=== PATIENT | female | born 1945 | race Caucasian/White ===

== ENCOUNTER 2017-06-08 14:19 | Inpatient (IN) | payer MEDICARE, MEDICAID ==
[~2017-06-08] VITALS: Ht 165.1 cm; Wt 74.8 kg
[~2017-06-08 14:19] MED LIST: ACET325T53 PO; HYDR-4209 PO; IMMODIUM PO; LEVE500T9 PO; LORA0.5T48 PO; MULT1TAB8 PO; OXYB5TAB29 PO; OXYC-132 PO; TEMA15CA5 PO
[2017-06-08] MEDS ORDERED: DIVA500T2 PO (14:45)
[2017-06-08] MEDS ORDERED: CRAN425C6 PO (14:45)
[2017-06-08] MEDS ORDERED: MIRT15TA PO (14:45)
[2017-06-08] MEDS ORDERED: LEVE750T4 PO (14:45)
[2017-06-08] MEDS ORDERED: RIVA1.5C3 PO (14:45)
[2017-06-08] MEDS ORDERED: ASPI81TA31 PO (14:45)
[2017-06-08] MEDS ORDERED: MELA3TAB52 PO (14:46)
[2017-06-08 14:50] LABS: BASOPHILS % (AUTO) 0.5 % (0.0-2.0); EOSINOPHILS # (AUTO) 0.1 K/uL (0.0-0.7); EOSINOPHILS % (AUTO) 2.5 % (0.0-7.0); HEMATOCRIT 38.2 % (31.2-41.9); HEMOGLOBIN 13.2 g/dL (10.9-14.3); LYMPHOCYTES # (AUTO) 2.1 K/uL (20.0-40.0); LYMPHOCYTES % (AUTO) 38.4 % (20.5-51.5); MEAN CORPUSCULAR HEMOGLOBIN 30.5 uug (24.7-32.8); MEAN CORPUSCULAR HGB CONC 35 g/dL (32.3-35.6); MEAN CORPUSCULAR VOLUME 88.3 fL (75.5-95.3); MONOCYTES # (AUTO) 0.3 K/uL (2.0-10.0); MONOCYTES % (AUTO) 5.5 % (0.0-11.0); NEUTROPHILS # (AUTO) 2.9 K/uL (1.8-8.9); NEUTROPHILS % (AUTO) 53.1 % (38.5-71.5); PLATELET COUNT (AUTO) 351 K/uL (179-408); RED BLOOD CELL COUNT(AUTO) 4.33 MIL/uL (3.63-4.92); WHITE BLOOD COUNT (AUTO) 5.5 K/uL (3.8-11.8)
[2017-06-08 14:57] LABS: CARBON DIOXIDE 24 mmol/L (21-32); CHLORIDE 94 mmol/L (98-107); CREATININE 0.5 mg/dL (0.6-1.3); GLUCOSE 155 mg/dL (74-106); UREA NITROGEN, BLOOD 5 mg/dL (7-18)
[2017-06-08] MEDS ORDERED: HYDROCODONE/APAP 5-325MG TABLET PO ONE (15:00)
[2017-06-08 15:02] LABS: ACETAMINOPHEN 10.6 ug/mL (10-30); ALANINE AMINOTRANSFERASE 21 U/L (14-59); ALKALINE PHOSPHATASE 123 U/L (50-136); ASPARTATE AMINOTRANSFERASE 14 U/L (15-37); BILIRUBIN,DIRECT 0.1 mg/dL (0.0-0.2); BILIRUBIN,TOTAL 0.2 mg/dL (0.2-1.0); TOTAL PROTEIN, SERUM 8.1 g/dL (6.4-8.2)
[2017-06-08 15:05] LABS: ETHANOL < 3 MG/DL (0-0)
[2017-06-08] MEDS ORDERED: GUAIFENESIN/CODEINE 5 ML LIQUID UDC PO ONE (15:06)
[2017-06-08] MEDS ORDERED: HYDROCODONE/APAP 5-325MG TABLET ONE (15:11)
[2017-06-08] MEDS ORDERED: GUAIFENESIN/CODEINE 5 ML LIQUID UDC ONE (15:11)
[2017-06-08 16:53] LABS: *BILIRUBIN,URIN NEGATIVE (NEGATIVE); *BLOOD, URINE 1+ (NEGATIVE); *CLARITY,URINE CLEAR (CLEAR); *COLOR,URINE YELLOW (YELLOW); *KETONES,URINE NEGATIVE (NEGATIVE); *PROTEIN,URINE NEGATIVE (NEGATIVE); *UROBILINOGEN,URINE 0.2 E.U./dl (NORMAL); LEUKOCYTE ESTERASE ,URINE NEGATIVE (NEGATIVE); NITRITE, URINE NEGATIVE (NEGATIVE); PH,URINE 7.5 (5.0-8.0); UGLUCOSE NEGATIVE (NEGATIVE)
[2017-06-08 17:09] LABS: WBC,URINE 0-3 /HPF (0-3)
[2017-06-08 17:15] LABS: *AMPHETAMINE, URINE NEGATIVE (NEGATIVE); *BARBITURATE, URINE NEGATIVE (NEGATIVE); *CANNABINOID, URINE NEGATIVE (NEGATIVE); *COCCAINE, URINE NEGATIVE (NEGATIVE); *OPIATE, URINE NEGATIVE (NEGATIVE); *PHENCYCLIDINE SCREEN,URINE NEGATIVE (NEGATIVE)
[2017-06-08 17:21] VITALS: BP 158/110
[2017-06-08] MEDS ORDERED: MAGNESIUM HYDROXIDE 30 ML LIQUID UDC PO PRN (20:45)
[2017-06-08] MEDS ORDERED: MAG HYDROX/AL HYDROX/SIMETH 30 ML LIQUID UDC PO PRN (20:45)
[2017-06-08] MEDS ORDERED: ACETAMINOPHEN 325 MG TABLET PO PRN (20:45)
[2017-06-08] MEDS ORDERED: TEMAZEPAM 7.5 MG CAPSULE PO PRN (20:45)
[2017-06-08 20:58] VITALS: BP 158/105
[2017-06-08] MEDS: TEMAZEPAM 15 MG CAPSULE PO PRN (22:15)
[2017-06-08] MEDS: GUAIFENESIN/DEXTROMETHORPHAN 5 ML UDC PO PRN (22:16)
[2017-06-08] MEDS: ACETAMINOPHEN 325 MG TABLET PO SCH (22:16)
[2017-06-09] MEDS: ACETAMINOPHEN 325 MG TABLET PO SCH (06:10)
[2017-06-09 07:02] LABS: CARBON DIOXIDE 27 mmol/L (21-32); CHLORIDE 95 mmol/L (98-107); CREATININE 0.5 mg/dL (0.6-1.3); GLUCOSE 82 mg/dL (74-106); MAGNESIUM 1.8 mg/dL (1.8-2.4); PHOSPHOROUS 4.2 mg/dL (2.5-4.9); POTASSIUM 3.7 mmol/L (3.5-5.1); UREA NITROGEN, BLOOD 8 mg/dL (7-18)
[2017-06-09 07:10] LABS: THYROID STIMULATING HORMONE 5.272 mIU/mL (0.358-3.740)
[2017-06-09 07:25] LABS: URIC ACID 3.6 mg/dL (2.6-6.0)
[2017-06-09] MEDS: MULTIVIT, IRON, MIN NO. 8, FA TABLET PO SCH (08:47)
[2017-06-09] MEDS: ASPIRIN 325 MG TABLET PO SCH (08:47)
[2017-06-09] MEDS: LEVETIRACETAM 250 MG TABLET PO SCH ×2 (08:47→20:10)
[2017-06-09] MEDS: GUAIFENESIN/DEXTROMETHORPHAN 5 ML UDC PO PRN (08:55)
[2017-06-09] MEDS ORDERED: Medication Not On Formulary EA (Cranberry Extract (Cranberry) 425 MG) PO SCH (09:00)
[2017-06-09] MEDS ORDERED: OXYBUTYNIN XL 5 MG TABSR PO SCH ×2 (09:00)
[2017-06-09] MEDS ORDERED: Medication Not On Formulary EA (Levetiracetam (Keppra) 750 MG) PO SCH (09:00)
[2017-06-09] MEDS ORDERED: OXYCODONE/APAP 5-325 MG TABLET PO PRN (09:15)
[2017-06-09 10:00] VITALS: BP 137/80
[2017-06-09] MEDS: OXYBUTYNIN XL 5 MG TABSR PO SCH (10:19)
[2017-06-09] MEDS ORDERED: MIRALAX 17 GM POWD.PACK PO PRN (14:45)
[2017-06-09] MEDS ORDERED: ALBUTEROL SULFATE 1.25 MG/3 ML NEBU NEB PRN (14:45)
[2017-06-09 15:00] VITALS: BP 145/82
[2017-06-09] MEDS: OXYCODONE/APAP 5-325 MG TABLET PO PRN (16:22)
[2017-06-09] MEDS: DIVALPROEX 500 MG TABLET.DR PO SCH (17:47)
[2017-06-09 20:00] VITALS: BP 136/73
[2017-06-09] MEDS: QUETIAPINE FUMARATE 25 MG TABLET PO SCH (20:10)
[2017-06-09] MEDS: DOXYCYCLINE HYCLATE 100 MG TABLET PO SCH (20:10)
[2017-06-09] MEDS: MIRTAZAPINE 15 MG TABLET PO SCH (20:10)
[2017-06-09] MEDS: BENZONATATE 100 MG CAPSULE PO SCH (21:04)
[2017-06-10] MEDS: BENZONATATE 100 MG CAPSULE PO SCH ×3 (06:15→22:20)
[2017-06-10 07:30] VITALS: BP 142/92
[2017-06-10] MEDS: LORAZEPAM 0.5 MG TABLET PO PRN (08:35)
[2017-06-10] MEDS: DIVALPROEX 500 MG TABLET.DR PO SCH ×2 (08:43→17:30)
[2017-06-10] MEDS: QUETIAPINE FUMARATE 25 MG TABLET PO SCH ×2 (08:43→20:08)
[2017-06-10] MEDS: DOXYCYCLINE HYCLATE 100 MG TABLET PO SCH ×2 (08:43→20:07)
[2017-06-10] MEDS: ASPIRIN 325 MG TABLET PO SCH (08:43)
[2017-06-10] MEDS: MULTIVIT, IRON, MIN NO. 8, FA TABLET PO SCH (08:43)
[2017-06-10] MEDS: OXYBUTYNIN XL 5 MG TABSR PO SCH (08:43)
[2017-06-10] MEDS: LEVETIRACETAM 250 MG TABLET PO SCH ×2 (09:00→20:07)
[2017-06-10] MEDS: OXYCODONE/APAP 5-325 MG TABLET PO PRN ×2 (13:36→20:12)
[2017-06-10 16:13] VITALS: BP 103/67
[2017-06-10 19:44] VITALS: BP 134/78
[2017-06-10] MEDS: MIRTAZAPINE 15 MG TABLET PO SCH (20:07)
[2017-06-11] MEDS: BENZONATATE 100 MG CAPSULE PO SCH ×3 (05:58→21:32)
[2017-06-11 07:52] VITALS: BP 154/96
[2017-06-11] MEDS: QUETIAPINE FUMARATE 25 MG TABLET PO SCH ×2 (08:13→20:09)
[2017-06-11] MEDS: OXYBUTYNIN XL 5 MG TABSR PO SCH (08:13)
[2017-06-11] MEDS: MULTIVIT, IRON, MIN NO. 8, FA TABLET PO SCH (08:13)
[2017-06-11] MEDS: DIVALPROEX 500 MG TABLET.DR PO SCH ×2 (08:13→17:26)
[2017-06-11] MEDS: DOXYCYCLINE HYCLATE 100 MG TABLET PO SCH (08:13)
[2017-06-11] MEDS: ASPIRIN 325 MG TABLET PO SCH (08:13)
[2017-06-11] MEDS: LEVETIRACETAM 250 MG TABLET PO SCH ×2 (08:50→20:08)
[2017-06-11] MEDS: OXYCODONE/APAP 5-325 MG TABLET PO PRN ×2 (08:52→15:20)
[2017-06-11 16:28] VITALS: BP 130/77
[2017-06-11 19:45] VITALS: BP 147/76
[2017-06-11] MEDS: MIRTAZAPINE 15 MG TABLET PO SCH (20:09)
[2017-06-12] MEDS: OXYCODONE/APAP 5-325 MG TABLET PO PRN ×3 (01:53→16:55)
[2017-06-12] MEDS: BENZONATATE 100 MG CAPSULE PO SCH ×3 (06:13→22:24)
[2017-06-12 07:30] VITALS: BP 131/60
[2017-06-12] MEDS: ASPIRIN 325 MG TABLET PO SCH (09:06)
[2017-06-12] MEDS: OXYBUTYNIN XL 5 MG TABSR PO SCH (09:06)
[2017-06-12] MEDS: DIVALPROEX 500 MG TABLET.DR PO SCH ×2 (09:06→16:54)
[2017-06-12] MEDS: QUETIAPINE FUMARATE 25 MG TABLET PO SCH ×2 (09:07→20:12)
[2017-06-12] MEDS: MULTIVIT, IRON, MIN NO. 8, FA TABLET PO SCH (09:07)
[2017-06-12] MEDS: LEVETIRACETAM 250 MG TABLET PO SCH ×2 (09:17→20:11)
[2017-06-12] MEDS: AZITHROMYCIN 250 MG TABLET PO SCH (09:17)
[2017-06-12] MEDS: GUAIFENESIN/DEXTROMETHORPHAN 5 ML UDC PO PRN (12:33)
[2017-06-12] MEDS: ALBUTEROL SULFATE 1.25 MG/3 ML NEBU NEB PRN ×2 (13:32→20:14)
[2017-06-12 15:26] VITALS: BP 127/75
[2017-06-12 20:04] VITALS: BP 100/63
[2017-06-12] MEDS: MIRTAZAPINE 15 MG TABLET PO SCH (20:11)
[2017-06-13] MEDS: GUAIFENESIN/DEXTROMETHORPHAN 5 ML UDC PO PRN ×2 (00:17→20:00)
[2017-06-13] MEDS: BENZONATATE 100 MG CAPSULE PO SCH ×3 (06:48→22:00)
[2017-06-13] MEDS: OXYCODONE/APAP 5-325 MG TABLET PO PRN ×3 (07:10→19:38)
[2017-06-13 07:30] VITALS: BP 139/73
[2017-06-13 07:42] LABS: BASOPHILS # (AUTO) 0.1 K/uL (0.0-8.0); BASOPHILS % (AUTO) 2.5 % (0.0-2.0); EOSINOPHILS # (AUTO) 0.2 K/uL (0.0-0.7); EOSINOPHILS % (AUTO) 3.9 % (0.0-7.0); HEMATOCRIT 36.9 % (31.2-41.9); HEMOGLOBIN 12.5 g/dL (10.9-14.3); LYMPHOCYTES # (AUTO) 2.4 K/uL (20.0-40.0); LYMPHOCYTES % (AUTO) 48.8 % (20.5-51.5); MEAN CORPUSCULAR HEMOGLOBIN 30.5 uug (24.7-32.8); MEAN CORPUSCULAR HGB CONC 34 g/dL (32.3-35.6); MEAN CORPUSCULAR VOLUME 89.9 fL (75.5-95.3); MONOCYTES # (AUTO) 0.4 K/uL (2.0-10.0); MONOCYTES % (AUTO) 9.1 % (0.0-11.0); NEUTROPHILS # (AUTO) 1.8 K/uL (1.8-8.9); NEUTROPHILS % (AUTO) 35.7 % (38.5-71.5); PLATELET COUNT (AUTO) 312 K/uL (179-408); RED BLOOD CELL COUNT(AUTO) 4.11 MIL/uL (3.63-4.92); WHITE BLOOD COUNT (AUTO) 4.9 K/uL (3.8-11.8)
[2017-06-13 07:51] LABS: ALANINE AMINOTRANSFERASE 21 U/L (14-59); ALKALINE PHOSPHATASE 103 U/L (50-136); ASPARTATE AMINOTRANSFERASE 11 U/L (15-37); BILIRUBIN,TOTAL 0.2 mg/dL (0.2-1.0); CARBON DIOXIDE 28 mmol/L (21-32); CHLORIDE 97 mmol/L (98-107); CREATININE 0.5 mg/dL (0.6-1.3); GLUCOSE 81 mg/dL (74-106); POTASSIUM 4.3 mmol/L (3.5-5.1); TOTAL PROTEIN, SERUM 7.8 g/dL (6.4-8.2); UREA NITROGEN, BLOOD 12 mg/dL (7-18)
[2017-06-13] MEDS: QUETIAPINE FUMARATE 25 MG TABLET PO SCH ×2 (09:22→20:00)
[2017-06-13] MEDS: DIVALPROEX 500 MG TABLET.DR PO SCH ×2 (09:23→16:44)
[2017-06-13] MEDS: ASPIRIN 325 MG TABLET PO SCH (09:23)
[2017-06-13] MEDS: OXYBUTYNIN XL 5 MG TABSR PO SCH (09:23)
[2017-06-13] MEDS: MULTIVIT, IRON, MIN NO. 8, FA TABLET PO SCH (09:23)
[2017-06-13] MEDS: AZITHROMYCIN 250 MG TABLET PO SCH (09:23)
[2017-06-13] MEDS: LEVETIRACETAM 250 MG TABLET PO SCH ×2 (09:23→20:00)
[2017-06-13 16:46] VITALS: BP 136/69
[2017-06-13] MEDS: MIRTAZAPINE 15 MG TABLET PO SCH (20:00)
[2017-06-13 20:14] VITALS: BP 141/71
[2017-06-13] MEDS: ALBUTEROL SULFATE 1.25 MG/3 ML NEBU NEB PRN (20:17)
[2017-06-14] MEDS: BENZONATATE 100 MG CAPSULE PO SCH ×3 (06:24→21:24)
[2017-06-14] MEDS: GUAIFENESIN/DEXTROMETHORPHAN 5 ML UDC PO PRN ×2 (06:28→19:49)
[2017-06-14] MEDS: OXYCODONE/APAP 5-325 MG TABLET PO PRN ×6 (06:28→18:13)
[2017-06-14 08:15] VITALS: BP 115/56
[2017-06-14] MEDS: AZITHROMYCIN 250 MG TABLET PO SCH (09:20)
[2017-06-14] MEDS: MULTIVIT, IRON, MIN NO. 8, FA TABLET PO SCH (09:20)
[2017-06-14] MEDS: OXYBUTYNIN XL 5 MG TABSR PO SCH (09:20)
[2017-06-14] MEDS: DIVALPROEX 500 MG TABLET.DR PO SCH ×2 (09:20→17:22)
[2017-06-14] MEDS: ASPIRIN 325 MG TABLET PO SCH (09:20)
[2017-06-14] MEDS: QUETIAPINE FUMARATE 25 MG TABLET PO SCH ×2 (09:21→21:25)
[2017-06-14] MEDS: LEVETIRACETAM 250 MG TABLET PO SCH ×2 (11:34→21:24)
[2017-06-14 15:30] VITALS: BP 116/73
[2017-06-14 19:51] VITALS: BP 119/68
[2017-06-14] MEDS: MIRTAZAPINE 15 MG TABLET PO SCH (21:24)
[2017-06-14] MEDS: LIDOCAINE 5% PATCH TD SCH (21:25)
[2017-06-14] MEDS: ALBUTEROL SULFATE 1.25 MG/3 ML NEBU NEB PRN (22:09)
[2017-06-14] MEDS: TEMAZEPAM 15 MG CAPSULE PO PRN (22:13)
[2017-06-15] MEDS: BENZONATATE 100 MG CAPSULE PO SCH ×3 (06:00→22:15)
[2017-06-15 07:30] VITALS: BP 116/51
[2017-06-15] MEDS: ASPIRIN 325 MG TABLET PO SCH (08:49)
[2017-06-15] MEDS: MULTIVIT, IRON, MIN NO. 8, FA TABLET PO SCH (08:56)
[2017-06-15] MEDS: DIVALPROEX 500 MG TABLET.DR PO SCH ×2 (08:56→15:59)
[2017-06-15] MEDS: QUETIAPINE FUMARATE 25 MG TABLET PO SCH ×2 (08:57→21:08)
[2017-06-15] MEDS: OXYBUTYNIN XL 5 MG TABSR PO SCH (08:58)
[2017-06-15] MEDS: AZITHROMYCIN 250 MG TABLET PO SCH (08:58)
[2017-06-15] MEDS: LEVETIRACETAM 250 MG TABLET PO SCH ×2 (08:59→21:08)
[2017-06-15] MEDS: OXYCODONE/APAP 5-325 MG TABLET PO PRN ×3 (09:00→22:14)
[2017-06-15] MEDS: GUAIFENESIN/DEXTROMETHORPHAN 5 ML UDC PO PRN (15:19)
[2017-06-15 16:47] VITALS: BP 126/81
[2017-06-15] MEDS: MIRTAZAPINE 15 MG TABLET PO SCH (21:08)
[2017-06-15] MEDS: LIDOCAINE 5% PATCH TD SCH (21:09)
[2017-06-15 21:44] VITALS: BP 124/64
[2017-06-16] MEDS: BENZONATATE 100 MG CAPSULE PO SCH (06:16)
[2017-06-16 07:57] VITALS: BP 124/69
[2017-06-16] MEDS: AZITHROMYCIN 250 MG TABLET PO SCH (08:25)
[2017-06-16] MEDS: QUETIAPINE FUMARATE 25 MG TABLET PO SCH (08:26)
[2017-06-16] MEDS: OXYBUTYNIN XL 5 MG TABSR PO SCH (08:26)
[2017-06-16] MEDS: MULTIVIT, IRON, MIN NO. 8, FA TABLET PO SCH (08:26)
[2017-06-16] MEDS: DIVALPROEX 500 MG TABLET.DR PO SCH (08:26)
[2017-06-16] MEDS: ASPIRIN 325 MG TABLET PO SCH (08:26)
[2017-06-16] MEDS: LEVETIRACETAM 250 MG TABLET PO SCH (09:38)
[2017-06-16] MEDS: GUAIFENESIN/DEXTROMETHORPHAN 5 ML UDC PO PRN (09:43)
[2017-06-16] MEDS: LORAZEPAM 0.5 MG TABLET PO PRN (10:28)
[2017-06-16] MEDS: OXYCODONE/APAP 5-325 MG TABLET PO PRN (13:36)
== END 2017-06-16 13:30 | DRG 885 ==
LOC: ER 14:19 → GPS 16:28
PROVIDERS: ADMIT Psychiatry & Neurology Psychiatry; ATTEND Internal Medicine
DX: F31.9 Bipolar disorder, unspecified (principal); F02.81 Dementia in other diseases classified elsewhere, unspecified severity, with behavioral disturbance; E22.2 Syndrome of inappropriate secretion of antidiuretic hormone; G30.9 Alzheimer's disease, unspecified; F29 Unspecified psychosis not due to a substance or known physiological condition; F39 Unspecified mood [affective] disorder; W18.30XA Fall on same level, unspecified, initial encounter; I10 Essential (primary) hypertension; E03.9 Hypothyroidism, unspecified; M17.12 Unilateral primary osteoarthritis, left knee; M81.0 Age-related osteoporosis without current pathological fracture; N32.81 Overactive bladder; S05.11XA Contusion of eyeball and orbital tissues, right eye, initial encounter; Y93.9 Activity, unspecified; Y92.129 Unspecified place in nursing home as the place of occurrence of the external cause
CPT/HCPCS: 36415; 70450; 71045; 73560; 80307; 82533; 83735; 84100; 84300; 84443; 84550; 85025; 93005; 94640; 94664; A4663; G0480; G0480-TC; Q0144

== ENCOUNTER 2018-08-01 19:11 | Inpatient (IN) | payer MEDICARE, MEDICAID ==
[~2018-08-01] VITALS: Ht 152.4 cm; Wt 58.1 kg
[~2018-08-01 19:11] MED LIST changes: +ASPI81TA31 PO; +CRAN425C6 PO; -HYDR-4209 PO; -IMMODIUM PO; -LEVE500T9 PO; +LEVE750T4 PO; -LORA0.5T48 PO; -TEMA15CA5 PO
--- NOTE | 2018-08-01 19:20 | NUR ---
PATIENT BIB PRIVATE AMBULANCE FROM [facility] ON A 5150 HOLD FOR GD TO BE MEDICALLY CLEARED TO BE ADMITTED TO MHU. PATIENT UPON ARRIVAL A/OX2. CALM AND COOPERATIVE. DENIES ANY DISTRESS. C/O LEFT KNEE PAIN WHICH SHE STATES SHE INJURIED IT ABOUT 8MONTHS AGO DUE TO A SLIP AND FALL
[2018-08-01 19:33] LABS: BASOPHILS # (AUTO) 0.1 K/uL (0.0-8.0); BASOPHILS % (AUTO) 1.4 % (0.0-2.0); EOSINOPHILS # (AUTO) 0.1 K/uL (0.0-0.7); HEMATOCRIT 39.9 % (31.2-41.9); HEMOGLOBIN 13.3 g/dL (10.9-14.3); LYMPHOCYTES # (AUTO) 2.2 K/uL (20.0-40.0); LYMPHOCYTES % (AUTO) 52.3 % (20.5-51.5); MEAN CORPUSCULAR HEMOGLOBIN 30.9 uug (24.7-32.8); MEAN CORPUSCULAR HGB CONC 33 g/dL (32.3-35.6); MEAN CORPUSCULAR VOLUME 92.5 fL (75.5-95.3); MONOCYTES # (AUTO) 0.3 K/uL (2.0-10.0); NEUTROPHILS # (AUTO) 1.6 K/uL (1.8-8.9); NEUTROPHILS % (AUTO) 37.3 % (38.5-71.5); PLATELET COUNT (AUTO) 254 K/uL (179-408); RED BLOOD CELL COUNT(AUTO) 4.31 MIL/uL (3.63-4.92); WHITE BLOOD COUNT (AUTO) 4.2 K/uL (3.8-11.8)
[2018-08-01 19:41] LABS: CARBON DIOXIDE 24 mmol/L (21-32); CHLORIDE 96 mmol/L (98-107); CREATININE 0.7 mg/dL (0.6-1.3); GLUCOSE 94 mg/dL (74-106); POTASSIUM 3.8 mmol/L (3.5-5.1); UREA NITROGEN, BLOOD 8 mg/dL (7-18)
[2018-08-01 19:46] LABS: ETHANOL 4 MG/DL (0-0)
[2018-08-01 19:48] LABS: ACETAMINOPHEN < 2.0 ug/mL (10-30); ALANINE AMINOTRANSFERASE 19 U/L (14-59); ALKALINE PHOSPHATASE 93 U/L (50-136); ASPARTATE AMINOTRANSFERASE 13 U/L (15-37); BILIRUBIN,DIRECT 0.1 mg/dL (0.0-0.2); BILIRUBIN,TOTAL 0.3 mg/dL (0.2-1.0)
--- NOTE | 2018-08-01 19:57 | NUR ---
MEDICALLY CLEARED BY DR TYLER
[2018-08-01] MEDS ORDERED: CRAN3875 PO (20:11)
[2018-08-01] MEDS ORDERED: DIVA500T2 PO (20:11)
[2018-08-01] MEDS ORDERED: DONE5TAB7 PO (20:11)
[2018-08-01] MEDS ORDERED: ACET-2154 PO (20:11)
[2018-08-01] MEDS ORDERED: ASPI-612 PO (20:11)
[2018-08-01] MEDS ORDERED: MAGN400O6 PO (20:11)
[2018-08-01] MEDS ORDERED: NA P133E RC (20:11)
[2018-08-01] MEDS ORDERED: DICL100G16 TP (20:11)
[2018-08-01] MEDS ORDERED: POLY17PO4 GT (20:11)
[2018-08-01] MEDS ORDERED: QUET25TA PO ×2 (20:11)
[2018-08-01] MEDS ORDERED: LEVO50TA8 PO (20:11)
[2018-08-01] MEDS ORDERED: MIRT7.5T10 PO (20:11)
[2018-08-01] MEDS ORDERED: MAG355OR18 PO (20:11)
[2018-08-01] MEDS ORDERED: MAG HYDROX/AL HYDROX/SIMETH 30 ML LIQUID UDC PO PRN (20:15)
[2018-08-01] MEDS ORDERED: MAGNESIUM HYDROXIDE 30 ML LIQUID UDC PO PRN (20:15)
--- NOTE | 2018-08-01 20:35 | NUR ---
TRANSFERED TO [facility] VIA SHEILA
[2018-08-01 20:50] VITALS: BP 167/68
[2018-08-01] MEDS ORDERED: CLONIDINE HCL 0.1 MG TABLET PO PRN (21:15)
[2018-08-01] MEDS: HYDROCODONE/APAP 5-325MG TABLET PO PRN (21:53)
--- NOTE | 2018-08-01 23:35 | NUR ---
Patient received from ER at 2044. Patient alert and oriented x1. Patient believes that she is here for pain management and that her and daughter are next door. Patient is unable to give history was able to obtain from her records. Patient states having left knee pain 8/10 pain medication given as ordered. Patient has unsteady gait can transfer self to wheel chair with minimal assistance. Physical Therapy ordered to evaluate patient. Patient has recent history of dysphagia will order speech therapy consult. Skin intact, bed in lowest position, bed locked, and bed alarm on while in bed.
[2018-08-02] MEDS: HYDROCODONE/APAP 5-325MG TABLET PO PRN ×3 (05:53→19:54)
[2018-08-02 07:30] VITALS: BP 102/49
[2018-08-02] MEDS ORDERED: MIRALAX 17 GM POWD.PACK GT PRN (12:00)
[2018-08-02] MEDS ORDERED: FLEET ENEMA 133 ML BOTTLE RC PRN (12:00)
[2018-08-02] MEDS: DIVALPROEX 500 MG TABLET.DR PO SCH ×2 (12:07→16:06)
[2018-08-02] MEDS: QUETIAPINE FUMARATE 25 MG TABLET PO SCH ×2 (12:07→20:39)
[2018-08-02] MEDS ORDERED: HOME MED MISCELLANEOUS XX SCH ×2 (12:15)
[2018-08-02] MEDS: LEVETIRACETAM 500 MG TABLET PO SCH ×2 (13:29→20:38)
[2018-08-02] MEDS: ASPIRIN 325 MG TABLET PO SCH (13:30)
[2018-08-02] MEDS: OXYBUTYNIN XL 5 MG TABSR PO SCH (13:30)
[2018-08-02 16:00] VITALS: BP 104/52
[2018-08-02] MEDS: LEVOTHYROXINE SODIUM 50 MCG TABLET PO SCH (16:06)
[2018-08-02 20:01] VITALS: BP 109/61
[2018-08-02] MEDS: MIRTAZAPINE 15 MG TABLET PO SCH (20:39)
[2018-08-02] MEDS ORDERED: Medication Not On Formulary EA (Mirtazapine 7.5 MG) PO SCH (21:00)
[2018-08-02] MEDS ORDERED: DONEPEZIL 5 MG TABLET PO SCH (21:00)
[2018-08-02] MEDS: DONEPEZIL 5 MG TABLET PO SCH (21:00)
--- NOTE | 2018-08-02 22:00 | NUR ---
received to care, lying in bed, pleasant upon approach. compliant with medications and staff direction. PRN norco was given at 1953, for bilateral knee pain, which was relieved effectively. as of 2199, she appears to be asleep. no distress noted. will continue to monitor closely.
[2018-08-03] MEDS: HYDROCODONE/APAP 5-325MG TABLET PO PRN ×3 (04:24→23:16)
[2018-08-03] MEDS: LEVOTHYROXINE SODIUM 50 MCG TABLET PO SCH (06:59)
[2018-08-03 07:30] VITALS: BP 112/61
[2018-08-03] MEDS ORDERED: Medication Not On Formulary EA (Cran/Vitc/Mannose/Inulin/Brom (Uti-Stat Liquid) 30 ML) PO SCH (09:00)
[2018-08-03] MEDS: OXYBUTYNIN XL 5 MG TABSR PO SCH (09:52)
[2018-08-03] MEDS: LEVETIRACETAM 500 MG TABLET PO SCH ×2 (09:52→20:38)
[2018-08-03] MEDS: DIVALPROEX 500 MG TABLET.DR PO SCH ×2 (09:52→17:31)
[2018-08-03] MEDS: QUETIAPINE FUMARATE 25 MG TABLET PO SCH ×2 (09:52→20:38)
[2018-08-03] MEDS: MULTIVIT, IRON, MIN NO. 8, FA TABLET PO SCH (09:52)
[2018-08-03] MEDS: ASPIRIN 325 MG TABLET PO SCH (09:53)
--- NOTE | 2018-08-03 11:01 | NUR ---
Initial Discharge Note: Patient is a 73 year female currently living at [facility] [[address] [place] [address]; ]. Patient will be accepted to return to facility when ready for d/c. Meter Inspector will continue to meet with patient, and collaborate with patient, family, and MD on a safe and proper d/c plan.
[2018-08-03] MEDS: CLOTRIMAZOLE 1% CREAM 30 GM TUBE TOP SCH (11:59)
[2018-08-03 16:00] VITALS: BP 106/55
[2018-08-03 19:54] VITALS: BP 100/58
[2018-08-03] MEDS: MIRTAZAPINE 15 MG TABLET PO SCH (20:38)
[2018-08-03] MEDS: DONEPEZIL 5 MG TABLET PO SCH ×2 (20:51→20:54)
--- NOTE | 2018-08-04 05:40 | NUR ---
GPS: Remain calm and cooperative with meds and care. uses w/c to go to the bathroom. pain meds given x1 and effective. continue on mrsa isolation. slept 9 hrs through the night. continue plan of care.
[2018-08-04] MEDS: LEVOTHYROXINE SODIUM 50 MCG TABLET PO SCH (06:00)
[2018-08-04] MEDS: HYDROCODONE/APAP 5-325MG TABLET PO PRN ×2 (06:30→19:36)
[2018-08-04 07:30] VITALS: BP 121/59
[2018-08-04] MEDS: ASPIRIN 325 MG TABLET PO SCH (08:18)
[2018-08-04] MEDS: QUETIAPINE FUMARATE 25 MG TABLET PO SCH ×2 (08:18→20:32)
[2018-08-04] MEDS: CLOTRIMAZOLE 1% CREAM 30 GM TUBE TOP SCH (08:18)
[2018-08-04] MEDS: LEVETIRACETAM 500 MG TABLET PO SCH ×2 (08:19→20:33)
[2018-08-04] MEDS: MULTIVIT, IRON, MIN NO. 8, FA TABLET PO SCH (08:19)
[2018-08-04] MEDS: DIVALPROEX 500 MG TABLET.DR PO SCH ×2 (08:19→17:28)
[2018-08-04] MEDS: OXYBUTYNIN XL 5 MG TABSR PO SCH (08:19)
[2018-08-04 08:42] LABS: BASOPHILS # (AUTO) 0.1 K/uL (0.0-8.0); EOSINOPHILS # (AUTO) 0.2 K/uL (0.0-0.7); EOSINOPHILS % (AUTO) 3.4 % (0.0-7.0); HEMATOCRIT 39.9 % (31.2-41.9); HEMOGLOBIN 13.2 g/dL (10.9-14.3); LYMPHOCYTES # (AUTO) 2.7 K/uL (20.0-40.0); MEAN CORPUSCULAR HEMOGLOBIN 30.9 uug (24.7-32.8); MEAN CORPUSCULAR HGB CONC 33 g/dL (32.3-35.6); MEAN CORPUSCULAR VOLUME 93.4 fL (75.5-95.3); MONOCYTES # (AUTO) 0.5 K/uL (2.0-10.0); MONOCYTES % (AUTO) 8.7 % (0.0-11.0); NEUTROPHILS # (AUTO) 2.5 K/uL (1.8-8.9); NEUTROPHILS % (AUTO) 41.9 % (38.5-71.5); PLATELET COUNT (AUTO) 234 K/uL (179-408); RED BLOOD CELL COUNT(AUTO) 4.27 MIL/uL (3.63-4.92); WHITE BLOOD COUNT (AUTO) 5.9 K/uL (3.8-11.8)
[2018-08-04 08:58] LABS: CARBON DIOXIDE 28 mmol/L (21-32); CHLORIDE 102 mmol/L (98-107); CREATININE 0.5 mg/dL (0.6-1.3); GLUCOSE 82 mg/dL (74-106); MAGNESIUM 1.8 mg/dL (1.8-2.4); PHOSPHOROUS 4.2 mg/dL (2.5-4.9); POTASSIUM 4.5 mmol/L (3.5-5.1); UREA NITROGEN, BLOOD 14 mg/dL (7-18)
[2018-08-04] MEDS: MUPIROCIN 2% OINT 22 GM TUBE NS SCH ×2 (11:01→17:28)
[2018-08-04 16:00] VITALS: BP 112/53
[2018-08-04 20:08] VITALS: BP 133/59
[2018-08-04] MEDS: DONEPEZIL 5 MG TABLET PO SCH (20:32)
[2018-08-04] MEDS: MIRTAZAPINE 15 MG TABLET PO SCH (20:33)
--- NOTE | 2018-08-05 05:52 | NUR ---
GPS: Remain calm and cooperative with meds and care. uses w/c to go to the bathroom. norco given for pain x1 and effective. continue on mrsa isolation. slept 6:30 hrs through the night. continue plan of care.
[2018-08-05] MEDS: LEVOTHYROXINE SODIUM 50 MCG TABLET PO SCH (06:04)
[2018-08-05 07:30] VITALS: BP 127/67
[2018-08-05] MEDS: MUPIROCIN 2% OINT 22 GM TUBE NS SCH ×2 (08:14→16:58)
[2018-08-05] MEDS: ASPIRIN 325 MG TABLET PO SCH (08:15)
[2018-08-05] MEDS: QUETIAPINE FUMARATE 25 MG TABLET PO SCH ×2 (08:15→20:02)
[2018-08-05] MEDS: CLOTRIMAZOLE 1% CREAM 30 GM TUBE TOP SCH (08:15)
[2018-08-05] MEDS: DIVALPROEX 500 MG TABLET.DR PO SCH ×2 (08:15→16:58)
[2018-08-05] MEDS: OXYBUTYNIN XL 5 MG TABSR PO SCH (08:15)
[2018-08-05] MEDS: MULTIVIT, IRON, MIN NO. 8, FA TABLET PO SCH (08:15)
[2018-08-05] MEDS: LEVETIRACETAM 500 MG TABLET PO SCH ×2 (08:15→20:02)
[2018-08-05 16:00] VITALS: BP 145/73
[2018-08-05 19:43] VITALS: BP 131/66
[2018-08-05] MEDS: HYDROCODONE/APAP 5-325MG TABLET PO PRN (19:52)
[2018-08-05] MEDS: MIRTAZAPINE 15 MG TABLET PO SCH (20:02)
[2018-08-05] MEDS: DONEPEZIL 5 MG TABLET PO SCH (20:02)
--- NOTE | 2018-08-06 05:54 | NUR ---
GPS: Remain calm and cooperative with medications and care. patient uses w/c to go to the bathroom. continue on mrsa isolation. slept 9:30 hrs through the night. continue plan of care.
[2018-08-06] MEDS: LEVOTHYROXINE SODIUM 50 MCG TABLET PO SCH (06:07)
[2018-08-06] MEDS: HYDROCODONE/APAP 5-325MG TABLET PO PRN ×3 (06:22→20:11)
[2018-08-06 07:35] LABS: *AMPHETAMINE, URINE NEGATIVE (NEGATIVE); *BARBITURATE, URINE NEGATIVE (NEGATIVE); *CANNABINOID, URINE NEGATIVE (NEGATIVE); *COCCAINE, URINE NEGATIVE (NEGATIVE); *OPIATE, URINE POSITIVE (NEGATIVE); *PHENCYCLIDINE SCREEN,URINE NEGATIVE (NEGATIVE)
[2018-08-06 07:44] VITALS: BP 105/51
[2018-08-06 08:15] LABS: *BILIRUBIN,URIN NEGATIVE (NEGATIVE); *COLOR,URINE YELLOW (YELLOW); *KETONES,URINE NEGATIVE (NEGATIVE); LEUKOCYTE ESTERASE ,URINE 2+ (NEGATIVE); NITRITE, URINE NEGATIVE (NEGATIVE); PH,URINE 7.5 (5.0-8.0); UGLUCOSE NEGATIVE (NEGATIVE)
[2018-08-06] MEDS: CLOTRIMAZOLE 1% CREAM 30 GM TUBE TOP SCH (08:15)
[2018-08-06] MEDS: MUPIROCIN 2% OINT 22 GM TUBE NS SCH ×2 (08:15→16:07)
[2018-08-06] MEDS: DIVALPROEX 500 MG TABLET.DR PO SCH ×2 (08:16→16:07)
[2018-08-06] MEDS: OXYBUTYNIN XL 5 MG TABSR PO SCH (08:16)
[2018-08-06] MEDS: QUETIAPINE FUMARATE 25 MG TABLET PO SCH ×2 (08:16→21:15)
[2018-08-06] MEDS: ASPIRIN 325 MG TABLET PO SCH (08:16)
[2018-08-06] MEDS: MULTIVIT, IRON, MIN NO. 8, FA TABLET PO SCH (08:16)
[2018-08-06] MEDS: LEVETIRACETAM 500 MG TABLET PO SCH ×2 (08:16→21:15)
[2018-08-06 08:45] LABS: *BLOOD, URINE TRACE (NEGATIVE); *CLARITY,URINE HAZY (CLEAR)
[2018-08-06 08:50] LABS: MUCUS,URINE FEW /LPF (0-FEW); SQUAMOUS EPITHELIAL CELL,UR FEW /HPF (NONE SEEN); WBC,URINE 20-50 /HPF (0-3)
[2018-08-06 09:51] LABS: BACTERIA,URINE MODERATE /HPF (NONE SEEN)
[2018-08-06 15:38] VITALS: BP 128/62
--- NOTE | 2018-08-06 16:36 | NUR ---
FIREARMS REPORT: Wound Care Technician completed and submitted a [facility] firearms report for a 5250 certification for grave disability. A copy of the report has been placed in patient's chart.
--- NOTE | 2018-08-06 16:45 | NUR ---
GPS: Nursing Notes: Transfer to GPS-Overflow: Patient is A/Ox2, compliant with her medications, low energy level, believes that her and daughter are here, needs assistance with ADL's, MRSA-Nares (+), on isolation precautions and Bactroban 2% oint, (+) UTI starting on Bactrim DS, (+) fungal infection on her feet, getting Lotrimin 1% cream report given to nurse Mary Anne, transfer [facility] room # [facility], continue with treatment plan.
[2018-08-06] MEDS: SULFAMETH/TRIMETH 800/160 MG TABLET PO SCH (20:13)
[2018-08-06 20:15] VITALS: BP 113/65
[2018-08-06] MEDS: DONEPEZIL 5 MG TABLET PO SCH (21:15)
[2018-08-06] MEDS: MIRTAZAPINE 15 MG TABLET PO SCH (21:15)
[2018-08-07] MEDS: CLONAZEPAM 0.5 MG TABLET PO PRN (02:02)
[2018-08-07] MEDS: HYDROCODONE/APAP 5-325MG TABLET PO PRN ×2 (02:03→19:43)
[2018-08-07] MEDS: LEVOTHYROXINE SODIUM 50 MCG TABLET PO SCH (06:11)
[2018-08-07 07:59] VITALS: BP 123/62
[2018-08-07] MEDS: SULFAMETH/TRIMETH 800/160 MG TABLET PO SCH ×2 (08:01→20:41)
[2018-08-07] MEDS: DIVALPROEX 500 MG TABLET.DR PO SCH ×2 (08:01→16:49)
[2018-08-07] MEDS: ASPIRIN 325 MG TABLET PO SCH (08:01)
[2018-08-07] MEDS: LEVETIRACETAM 500 MG TABLET PO SCH ×2 (08:01→20:42)
[2018-08-07] MEDS: MULTIVIT, IRON, MIN NO. 8, FA TABLET PO SCH (08:01)
[2018-08-07] MEDS: QUETIAPINE FUMARATE 25 MG TABLET PO SCH ×2 (08:01→20:41)
[2018-08-07] MEDS: OXYBUTYNIN XL 5 MG TABSR PO SCH (08:02)
[2018-08-07] MEDS: MUPIROCIN 2% OINT 22 GM TUBE NS SCH ×2 (09:37→16:49)
[2018-08-07] MEDS: CLOTRIMAZOLE 1% CREAM 30 GM TUBE TOP SCH (09:37)
[2018-08-07 15:06] VITALS: BP 113/59
[2018-08-07 19:35] VITALS: BP 142/67
--- NOTE | 2018-08-07 20:00 | NUR ---
RECEIVED PATIENT AWAKE AND ALERT WITH 1:1 SITTER AT BEDSIDE. PATIENT HAS NO COMPLAINTS OF ACUTE DISTRESS OR DISCOMFORT AT THIS TIME. ALL SAFETY AND FALL PRECAUTION MEASURES ARE IN PLACE. CALL LIGHT AND PERSONAL ITEMS ARE WITHIN REACH AT ALL TIMES. WILL CONTINUE TO MONITOR.
[2018-08-07] MEDS: MIRTAZAPINE 15 MG TABLET PO SCH (20:41)
[2018-08-07] MEDS: DONEPEZIL 5 MG TABLET PO SCH (20:41)
[2018-08-07] MEDS: TEMAZEPAM 7.5 MG CAPSULE PO PRN (21:45)
--- NOTE | 2018-08-08 | NUR ---
RECEIVED REPORT FROM RN. PATIENT ASLEEP IN BED. SITTER AT BEDSIDE FOR SAFETY. VS WNL. BED ALARM ON. ALL NEEDS ATTENDED. WILL CONTINUE TO MONITOR.
[2018-08-08] MEDS: HYDROCODONE/APAP 5-325MG TABLET PO PRN ×3 (02:55→17:07)
[2018-08-08] MEDS: LEVOTHYROXINE SODIUM 50 MCG TABLET PO SCH (06:20)
--- NOTE | 2018-08-08 07:10 | NUR ---
RECEIVED PATIENT IN BED, ASLEEP, EASY TO AWAKE. AOX3. DENIES SOB OR PAIN AT THIS TIME. FALL AND SAFETY PRECAUTIONS IN PLACE. CALL LIGHT IN REACH. BED IN LOW POSITION AND LOCKED. WILL CONTINUE TO MONITOR.
[2018-08-08 07:30] VITALS: BP 121/58
[2018-08-08] MEDS: OXYBUTYNIN XL 5 MG TABSR PO SCH (08:56)
[2018-08-08] MEDS: ASPIRIN 325 MG TABLET PO SCH (08:56)
[2018-08-08] MEDS: SULFAMETH/TRIMETH 800/160 MG TABLET PO SCH ×2 (08:56→20:45)
[2018-08-08] MEDS: QUETIAPINE FUMARATE 25 MG TABLET PO SCH ×2 (08:58→20:45)
[2018-08-08] MEDS: DIVALPROEX 500 MG TABLET.DR PO SCH ×2 (08:58→17:01)
[2018-08-08] MEDS: MUPIROCIN 2% OINT 22 GM TUBE NS SCH ×2 (08:59→17:01)
[2018-08-08] MEDS: LEVETIRACETAM 500 MG TABLET PO SCH ×2 (08:59→20:45)
[2018-08-08] MEDS: CLOTRIMAZOLE 1% CREAM 30 GM TUBE TOP SCH (08:59)
[2018-08-08] MEDS: MULTIVIT, IRON, MIN NO. 8, FA TABLET PO SCH (08:59)
[2018-08-08 16:16] VITALS: BP 108/57
--- NOTE | 2018-08-08 18:19 | NUR ---
PATIENT REMAINS CALM AND COMPLIANT WITH MEDICATION AND ALL CARE. 1;1 SITTER IN ROOM. PATIENT COMPLAINS OF LEFT KNEE PAIN AND TAKES PAIN MEDICATIONS PRN ORDERED. PATIENT IS ABLE TO TRANSFER FROM BED TO W/C AND GO TO THE BATHROOM WITH TOILET TRANSFER. VITAL SIGNS STABLE THROUGHOUT THE SHIFT. PATIENT ON MRSA ISOLATION. SAFETY AND FALL PRECAUTIONS IN PLACE. BED IN LOW AND LOCKED POSITION. CALL LIGHT IN REACH. WILL REPORT TO ONCOMING NURSE.
--- NOTE | 2018-08-08 19:30 | NUR ---
RECEIVED PT ON BED. PLEASANT WHEN APPROACH. NO S.I. PT IN NO ACUTE DISTRESS. SITTER AT BEDSIDE. SAFETY AND COMFORT PROVIDED. WILL CONTINUE TO MONITOR.
[2018-08-08] MEDS: MIRTAZAPINE 15 MG TABLET PO SCH (20:45)
[2018-08-08] MEDS: DONEPEZIL 5 MG TABLET PO SCH (20:46)
[2018-08-08 20:50] VITALS: BP 100/51
[2018-08-09] MEDS: HYDROCODONE/APAP 5-325MG TABLET PO PRN ×3 (00:58→21:10)
[2018-08-09 05:30] VITALS: BP 113/56
[2018-08-09] MEDS: LEVOTHYROXINE SODIUM 50 MCG TABLET PO SCH (06:08)
--- NOTE | 2018-08-09 06:39 | NUR ---
PT SLEPT 8 HOURS.. PT SHOWS NO SIGNS OF ACUTE DISTRESS.PRESCRIBED MEDICATION GIVEN AND PT TOLERATED IT WELL.NORCO GIVEN BECAUSE PT HAVE 8/10 PAIN ON HER LEFT KNEE. PT TOLERATED IT WELL. SAFETY AND COMFORT PROVIDED. ALL NEEDS ARE MET. WILL ENDORSE ACCORDINGLY TO INCOMING NURSE FOR CONTINUITY OF CARE.
[2018-08-09 08:00] VITALS: BP 113/54
[2018-08-09] MEDS: ASPIRIN 325 MG TABLET PO SCH (08:31)
[2018-08-09] MEDS: MULTIVIT, IRON, MIN NO. 8, FA TABLET PO SCH (08:32)
[2018-08-09] MEDS: OXYBUTYNIN XL 5 MG TABSR PO SCH (08:32)
[2018-08-09] MEDS: LEVETIRACETAM 500 MG TABLET PO SCH ×2 (08:32→20:32)
[2018-08-09] MEDS: DIVALPROEX 500 MG TABLET.DR PO SCH ×2 (08:32→17:36)
[2018-08-09] MEDS: SULFAMETH/TRIMETH 800/160 MG TABLET PO SCH ×2 (08:32→20:30)
[2018-08-09] MEDS: QUETIAPINE FUMARATE 25 MG TABLET PO SCH ×2 (08:33→20:31)
[2018-08-09] MEDS: MUPIROCIN 2% OINT 22 GM TUBE NS SCH ×2 (08:36→17:37)
[2018-08-09] MEDS: CLOTRIMAZOLE 1% CREAM 30 GM TUBE TOP SCH (08:36)
[2018-08-09 12:00] VITALS: BP 109/51
[2018-08-09 16:00] VITALS: BP 112/53
[2018-08-09 20:00] VITALS: BP 116/58
--- NOTE | 2018-08-09 20:00 | NUR ---
Received pt. resting in bed alert oriented x3. Pt. denies any SOB or difficulty breathing. Pt. denies any pain or discomfort. Pt. cooperative and in pleasant mood. 1:1 Sitter. Safety measures in place. Will continue to monitor pt.
[2018-08-09] MEDS: DONEPEZIL 5 MG TABLET PO SCH (20:30)
[2018-08-09] MEDS: MIRTAZAPINE 15 MG TABLET PO SCH (20:33)
[2018-08-10] MEDS: LEVOTHYROXINE SODIUM 50 MCG TABLET PO SCH (06:26)
[2018-08-10] MEDS: HYDROCODONE/APAP 5-325MG TABLET PO PRN ×2 (06:27→18:33)
--- NOTE | 2018-08-10 07:39 | NUR ---
Pt. resting in bed with sitter at bedside. Pt. slept intermittently throughout night. Pain in L knee assessed and given PRN pain medication. Safety measures in place. Comfort measures provided. Will continue to monitor.
[2018-08-10] MEDS: ACETAMINOPHEN 325 MG TABLET PO PRN (09:56)
[2018-08-10] MEDS: LEVETIRACETAM 500 MG TABLET PO SCH ×2 (09:57→20:54)
[2018-08-10] MEDS: ASPIRIN 325 MG TABLET PO SCH (09:57)
[2018-08-10] MEDS: SULFAMETH/TRIMETH 800/160 MG TABLET PO SCH (09:57)
[2018-08-10] MEDS: OXYBUTYNIN XL 5 MG TABSR PO SCH (09:57)
[2018-08-10] MEDS: MULTIVIT, IRON, MIN NO. 8, FA TABLET PO SCH (09:57)
[2018-08-10] MEDS: DIVALPROEX 500 MG TABLET.DR PO SCH ×2 (09:58→18:26)
[2018-08-10] MEDS: QUETIAPINE FUMARATE 25 MG TABLET PO SCH ×2 (09:59→20:53)
[2018-08-10] MEDS: CLOTRIMAZOLE 1% CREAM 30 GM TUBE TOP SCH (09:59)
[2018-08-10] MEDS: MUPIROCIN 2% OINT 22 GM TUBE NS SCH ×2 (10:00→18:26)
[2018-08-10 11:55] VITALS: BP 104/58
[2018-08-10 15:58] VITALS: BP 101/46
--- NOTE | 2018-08-10 20:05 | NUR ---
Patient arrived from [place] floor on bed. Patient awake & alert. No SOB, No pain, no signs of distress verbalized. Will continue to monitor
--- NOTE | 2018-08-10 20:05 | NUR ---
patient transferred to MHU in a hospital bed.
[2018-08-10 20:31] VITALS: BP 114/69
[2018-08-10 20:32] VITALS: BP_SYST 128; BP_SYST 163; BP_DIAS 67; BP_DIAS 83
[2018-08-10] MEDS: MIRTAZAPINE 15 MG TABLET PO SCH (20:52)
[2018-08-10] MEDS: DONEPEZIL 5 MG TABLET PO SCH (20:52)
[2018-08-11] MEDS: LEVOTHYROXINE SODIUM 50 MCG TABLET PO SCH (06:53)
[2018-08-11] MEDS: DIVALPROEX 500 MG TABLET.DR PO SCH ×2 (08:42→16:31)
[2018-08-11] MEDS: QUETIAPINE FUMARATE 25 MG TABLET PO SCH ×2 (08:42→20:10)
[2018-08-11] MEDS: MULTIVIT, IRON, MIN NO. 8, FA TABLET PO SCH (08:42)
[2018-08-11] MEDS: LEVETIRACETAM 500 MG TABLET PO SCH ×2 (08:42→20:09)
[2018-08-11] MEDS: CLOTRIMAZOLE 1% CREAM 30 GM TUBE TOP SCH (08:43)
[2018-08-11] MEDS: OXYBUTYNIN XL 5 MG TABSR PO SCH (08:48)
[2018-08-11] MEDS: ASPIRIN 325 MG TABLET PO SCH (08:48)
[2018-08-11 10:32] VITALS: BP 109/68
[2018-08-11 15:30] VITALS: BP 113/61
[2018-08-11 19:54] VITALS: BP 142/76
[2018-08-11] MEDS: MIRTAZAPINE 15 MG TABLET PO SCH (20:09)
[2018-08-11] MEDS: DONEPEZIL 5 MG TABLET PO SCH (20:09)
[2018-08-11] MEDS: HYDROCODONE/APAP 5-325MG TABLET PO PRN (20:09)
[2018-08-12] MEDS: TEMAZEPAM 7.5 MG CAPSULE PO PRN (02:02)
[2018-08-12 07:30] VITALS: BP 125/71
--- NOTE | 2018-08-12 07:30 | NUR ---
received patient in room, comfortable. calm, quiet, smiles prn . appreciative of care
[2018-08-12] MEDS: LEVOTHYROXINE SODIUM 50 MCG TABLET PO SCH (07:56)
--- NOTE | 2018-08-12 08:10 | NUR ---
med x 1 for complaint of left knee pain.
[2018-08-12] MEDS: MULTIVIT, IRON, MIN NO. 8, FA TABLET PO SCH (08:16)
[2018-08-12] MEDS: OXYBUTYNIN XL 5 MG TABSR PO SCH (08:16)
[2018-08-12] MEDS: ASPIRIN 325 MG TABLET PO SCH (08:16)
[2018-08-12] MEDS: DIVALPROEX 500 MG TABLET.DR PO SCH ×2 (08:16→16:52)
[2018-08-12] MEDS: HYDROCODONE/APAP 5-325MG TABLET PO PRN (08:17)
[2018-08-12] MEDS: LEVETIRACETAM 500 MG TABLET PO SCH ×2 (08:17→20:22)
[2018-08-12] MEDS: CLOTRIMAZOLE 1% CREAM 30 GM TUBE TOP SCH (08:17)
[2018-08-12] MEDS: QUETIAPINE FUMARATE 25 MG TABLET PO SCH ×2 (08:17→20:21)
--- NOTE | 2018-08-12 09:00 | NUR ---
relief from pain left knee verbalized
--- NOTE | 2018-08-12 12:00 | NUR ---
resting in room. comfortable
[2018-08-12 16:00] VITALS: BP 125/72
--- NOTE | 2018-08-12 16:00 | NUR ---
up wheelchair with minimal assistance.
[2018-08-12] MEDS: DONEPEZIL 5 MG TABLET PO SCH (20:21)
[2018-08-12] MEDS: MIRTAZAPINE 15 MG TABLET PO SCH (20:22)
[2018-08-12 20:39] VITALS: BP 110/62
[2018-08-13] MEDS: TEMAZEPAM 7.5 MG CAPSULE PO PRN (00:19)
[2018-08-13] MEDS: HYDROCODONE/APAP 5-325MG TABLET PO PRN ×3 (01:52→16:44)
[2018-08-13] MEDS: CLONAZEPAM 0.5 MG TABLET PO PRN (04:57)
[2018-08-13] MEDS: LEVOTHYROXINE SODIUM 50 MCG TABLET PO SCH (06:37)
[2018-08-13 07:30] VITALS: BP 156/90
[2018-08-13] MEDS: LEVETIRACETAM 500 MG TABLET PO SCH ×2 (08:32→20:49)
[2018-08-13] MEDS: ASPIRIN 325 MG TABLET PO SCH (08:32)
[2018-08-13] MEDS: MULTIVIT, IRON, MIN NO. 8, FA TABLET PO SCH (08:32)
[2018-08-13] MEDS: OXYBUTYNIN XL 5 MG TABSR PO SCH (08:32)
[2018-08-13] MEDS: QUETIAPINE FUMARATE 25 MG TABLET PO SCH ×2 (08:32→20:50)
[2018-08-13] MEDS: DIVALPROEX 500 MG TABLET.DR PO SCH ×2 (08:32→16:43)
[2018-08-13] MEDS: CLOTRIMAZOLE 1% CREAM 30 GM TUBE TOP SCH (08:33)
[2018-08-13 16:00] VITALS: BP 120/57
[2018-08-13 20:29] VITALS: BP 107/72
[2018-08-13] MEDS: DONEPEZIL 5 MG TABLET PO SCH (20:48)
[2018-08-13 20:50] VITALS: BP 110/72
[2018-08-13] MEDS: MIRTAZAPINE 15 MG TABLET PO SCH (20:50)
[2018-08-14] MEDS: HYDROCODONE/APAP 5-325MG TABLET PO PRN ×2 (05:42→18:36)
[2018-08-14] MEDS: LEVOTHYROXINE SODIUM 50 MCG TABLET PO SCH (06:14)
[2018-08-14 07:30] VITALS: BP 95/50
[2018-08-14] MEDS: QUETIAPINE FUMARATE 25 MG TABLET PO SCH (08:20)
[2018-08-14] MEDS: DIVALPROEX 500 MG TABLET.DR PO SCH ×2 (08:20→17:32)
[2018-08-14] MEDS: LEVETIRACETAM 500 MG TABLET PO SCH (08:21)
[2018-08-14] MEDS: ACETAMINOPHEN 325 MG TABLET PO PRN (08:21)
[2018-08-14] MEDS: OXYBUTYNIN XL 5 MG TABSR PO SCH (08:22)
[2018-08-14] MEDS: MULTIVIT, IRON, MIN NO. 8, FA TABLET PO SCH (08:22)
[2018-08-14] MEDS: ASPIRIN 325 MG TABLET PO SCH (08:23)
[2018-08-14] MEDS: CLOTRIMAZOLE 1% CREAM 30 GM TUBE TOP SCH (08:23)
--- NOTE | 2018-08-14 09:02 | NUR ---
Discharge Note: Patient will be discharged to back to [facility] [[address], [place] [address]; ] and transportation will be provided by ambulance at 2:00pm. Please arrange ambulance transportation for this patient. Acceptance to facility was received by [facility], who states they are ready to accept the patient today. Patient is AxOx1, denies suicidal ideation, is able to plan for self-care, and is agreeable with discharge plan. experimental worker has called and spoken with patient next of kin, Jose Rafael Cuadra [[phone]], who is aware and agreeable with discharge plan. Patient will be followed by Dr. Darnell (hydrologic engineer) and Dr. Cruz (psychiatrist) at the facility. Patient has also been provided with mental health resources including [facility] Crisis Line [ ], [facility] [ ], and the National Suicide Prevention Lifeline [ ].
[2018-08-14 15:43] VITALS: BP 129/59
[2018-08-14] MEDS: CLONAZEPAM 0.5 MG TABLET PO PRN (18:34)
--- NOTE | 2018-08-14 18:48 | NUR ---
TRANSFERRED TO [facility], PATIENT DENIES RADHA ND HI, COMPLIANT WITH MEDICATION, PAIN MEDS GIVEN ORDERED, HOME MEDICATION INSTRUCTION GIVEN TO SNF, AP AWARE OF THE DC
== END 2018-08-14 19:03 | DRG 885 ==
LOC: ER 19:13 → GPS 20:11 → GPSOV3 08-06 16:32 → GPS 08-10 20:06
PROVIDERS: ADMIT Psychiatry & Neurology Psychiatry; ATTEND Internal Medicine Nephrology
DX: F29 Unspecified psychosis not due to a substance or known physiological condition (principal); F02.81 Dementia in other diseases classified elsewhere, unspecified severity, with behavioral disturbance; E87.1 Hypo-osmolality and hyponatremia; N39.0 Urinary tract infection, site not specified; G30.9 Alzheimer's disease, unspecified; K21.9 Gastro-esophageal reflux disease without esophagitis; Z79.82 Long term (current) use of aspirin; Z91.19 Patient's noncompliance with other medical treatment and regimen; E03.9 Hypothyroidism, unspecified; N32.81 Overactive bladder; R26.81 Unsteadiness on feet; E55.9 Vitamin D deficiency, unspecified; I10 Essential (primary) hypertension; G40.909 Epilepsy, unspecified, not intractable, without status epilepticus; M81.0 Age-related osteoporosis without current pathological fracture; M19.90 Unspecified osteoarthritis, unspecified site; Z79.899 Other long term (current) drug therapy; B35.1 Tinea unguium; B35.3 Tinea pedis; Z86.59 Personal history of other mental and behavioral disorders
CPT/HCPCS: 36415; 71045; 80307; 83735; 84100; 85025; 87086; 92526; 92610; 93005; A4663; G0480; G0480-TC

== ENCOUNTER 2020-01-23 02:09 | Inpatient (IN) | payer MEDICARE, OTHER ==
[~2020-01-23] VITALS: Ht 165.1 cm; Wt 65.8 kg
[~2020-01-23 02:09] MED LIST changes: +ACET-2154 PO; -ACET325T53 PO; +ASPI-612 PO; -ASPI81TA31 PO; +CRAN3875 PO; +DICL100G16 TP; +DIVA500T2 PO; +DONE5TAB7 PO; +LEVO50TA8 PO; +MAG355OR18 PO; +MAGN400O6 PO; +MIRT7.5T10 PO; +NA P133E RC; -OXYC-132 PO; +POLY17PO4 GT; +QUET25TA PO
[2020-01-23] MEDS ORDERED: IV NS 1000 ML 1,000 ML IV ONE ×2 (03:30→04:30)
--- NOTE | 2020-01-23 03:36 | NUR ---
at bedside for MSE
[2020-01-23 04:20] LABS: BASOPHILS % (AUTO) 0.3 % (0.0-2.0); EOSINOPHILS % (AUTO) 0.1 % (0.0-7.0); HEMATOCRIT 35.5 % (31.2-41.9); HEMOGLOBIN 11.9 g/dL (10.9-14.3); LYMPHOCYTES # (AUTO) 2.2 K/uL (20.0-40.0); LYMPHOCYTES % (AUTO) 34.1 % (20.5-51.5); MEAN CORPUSCULAR HEMOGLOBIN 31.7 uug (24.7-32.8); MEAN CORPUSCULAR HGB CONC 34 g/dL (32.3-35.6); MEAN CORPUSCULAR VOLUME 94.2 fL (75.5-95.3); MONOCYTES # (AUTO) 0.5 K/uL (2.0-10.0); MONOCYTES % (AUTO) 8.4 % (0.0-11.0); NEUTROPHILS # (AUTO) 3.7 K/uL (1.8-8.9); NEUTROPHILS % (AUTO) 57.1 % (38.5-71.5); PLATELET COUNT (AUTO) 243 K/uL (179-408); RED BLOOD CELL COUNT(AUTO) 3.77 MIL/uL (3.63-4.92); WHITE BLOOD COUNT (AUTO) 6.4 K/uL (3.8-11.8)
[2020-01-23 04:49] LABS: CARBON DIOXIDE 26 mmol/L (21-32); CHLORIDE 96 mmol/L (98-107); GLUCOSE 97 mg/dL (74-106); POTASSIUM 3.1 mmol/L (3.5-5.1); UREA NITROGEN, BLOOD 11 mg/dL (7-18)
[2020-01-23 04:50] LABS: ALANINE AMINOTRANSFERASE 9 U/L (14-59); ALKALINE PHOSPHATASE 111 U/L (50-136); ASPARTATE AMINOTRANSFERASE 7 U/L (15-37); BILIRUBIN,TOTAL 0.2 mg/dL (0.2-1.0); CREATININE 0.6 mg/dL (0.6-1.3); FERRITIN 95 ng/mL (8-252); LACTATE DEHYDROGENASE 127 U/L (81-234)
[2020-01-23 04:51] LABS: TOTAL PROTEIN, SERUM 7.5 g/dL (6.4-8.2)
[2020-01-23 05:13] LABS: CREATINE KINASE, TOTAL 32 U/L (26-192)
[2020-01-23] MEDS ORDERED: ASPI81TA31 PO (06:33)
[2020-01-23] MEDS ORDERED: DONE5TAB7 PO (06:33)
[2020-01-23] MEDS ORDERED: CHOL10002 PO (06:33)
[2020-01-23] MEDS ORDERED: CRAN450C PO (06:33)
[2020-01-23] MEDS ORDERED: OXYB5TAB29 PO (06:33)
[2020-01-23] MEDS ORDERED: POLY17PO4 PO (06:33)
[2020-01-23] MEDS ORDERED: MAG355OR18 PO (06:33)
[2020-01-23] MEDS ORDERED: ZINC1CAP2 PO (06:33)
[2020-01-23] MEDS ORDERED: LEVE500T9 PO (06:33)
[2020-01-23] MEDS ORDERED: LEVO50TA PO (06:33)
[2020-01-23] MEDS ORDERED: CLON0.1T14 PO (06:33)
[2020-01-23] MEDS ORDERED: MAGN400O6 PO (06:33)
[2020-01-23] MEDS ORDERED: DIVA500T2 PO (06:33)
[2020-01-23] MEDS ORDERED: MIRT-121 PO (06:33)
[2020-01-23] MEDS ORDERED: CRAN3875 PO (06:33)
[2020-01-23] MEDS ORDERED: NA P133E RC (06:33)
[2020-01-23] MEDS ORDERED: MULT-213 PO (06:33)
[2020-01-23] MEDS ORDERED: QUET25TA PO ×2 (06:33)
[2020-01-23] MEDS ORDERED: ASCO500P18 PO (06:33)
--- NOTE | 2020-01-23 07:10 | NUR ---
Patient is resting comfortably in bed with eyes closed, NAD noted. Per Md, Dr Watson spoke to Dr Vásquez to admit pt to Tele.
--- NOTE | 2020-01-23 08:40 | NUR ---
Breakfast provided, pt states not hungry and just want to rest.
--- NOTE | 2020-01-23 09:15 | NUR ---
Urine collected and sent to Lab.
--- NOTE | 2020-01-23 12:40 | NUR ---
Provided lunch tray, pt ate w/ moderate appetite. No c/o pain.
--- NOTE | 2020-01-23 14:42 | NUR ---
Reposition for comfort, no c/o pain. will continue monitoring.
[2020-01-23 14:57] LABS: *BILIRUBIN,URIN NEGATIVE (NEGATIVE); *BLOOD, URINE 2+ (NEGATIVE); *CLARITY,URINE SLIGHTLY CLOUDY (CLEAR); *COLOR,URINE LIGHT YELLOW (YELLOW); *KETONES,URINE NEGATIVE (NEGATIVE); *UROBILINOGEN,URINE 0.2 E.U./dl (NORMAL); LEUKOCYTE ESTERASE ,URINE 3+ (NEGATIVE); NITRITE, URINE POSITIVE (NEGATIVE); PH,URINE 5.5 (5.0-8.0); UGLUCOSE NEGATIVE (NEGATIVE)
[2020-01-23 16:48] VITALS: BP 121/67
--- NOTE | 2020-01-23 18:03 | NUR ---
RECEIVED PATIENT FROM EMERGENCY DEPARTMENT VIA [facility]. PATIENT IS ALERT AND ORIENTED X 3, SOME EPISODES OF CONFUSION. VSS. NO S/S OF DISTRESS NOTED AT THIS TIME. MD MADE AWARE OF NEW ADMISSION.
--- NOTE | 2020-01-23 19:30 | NUR ---
Pt received in bed, awake and alert. Denies SOB at this time. Bed is locked and in lowest position, side rails up X2. Denies pain at this time. No other issues or concerns at this time.
[2020-01-23 19:35] LABS: BACTERIA,URINE MODERATE /HPF (NONE SEEN); SQUAMOUS EPITHELIAL CELL,UR FEW /HPF (NONE SEEN); WBC,URINE 20-50 /HPF (0-3)
[2020-01-23 20:00] VITALS: BP 133/76
[2020-01-23] MEDS ORDERED: CLONIDINE HCL 0.1 MG TABLET PO PRN (21:15)
[2020-01-23] MEDS ORDERED: MIRALAX 17 GM POWD.PACK PO PRN (21:15)
[2020-01-23] MEDS ORDERED: MAGNESIUM HYDROXIDE 30 ML LIQUID UDC PO PRN (21:45)
[2020-01-23] MEDS ORDERED: Z GUARD REMEDY PASTE 57 GM TUBE TOP PRN (21:45)
[2020-01-23] MEDS ORDERED: ZOLPIDEM 5 MG TABLET PO PRN (21:45)
[2020-01-23] MEDS ORDERED: ONDANSETRON 4 MG/2 ML VIAL IV PRN (21:45)
[2020-01-23] MEDS: CEFEPIME HCL 1 G in IV DEXTROSE 5% 50 ML IV SCH (22:00)
[2020-01-23] MEDS ORDERED: VANCOMYCIN IV 1,000 MG in IV DEXTROSE 5% 250 ML IV ONE (22:45)
[2020-01-23] MEDS: DONEPEZIL 5 MG TABLET PO SCH (23:06)
[2020-01-23] MEDS: ENOXAPARIN SODIUM 40 MG/0.4 ML DISP.SYRIN SQ SCH (23:07)
[2020-01-23] MEDS ORDERED: CEFEPIME HCL 1 G VIAL ONE (23:25)
[2020-01-23] MEDS ORDERED: VANCOMYCIN IV 200 ML ONE (23:39)
[2020-01-23] MEDS: HYDROCODONE/APAP 5-325MG TABLET PO PRN (23:57)
[2020-01-24 00:33] VITALS: BP 121/86
[2020-01-24 04:00] VITALS: BP 105/57
[2020-01-24] MEDS: CEFEPIME HCL 1 G in IV DEXTROSE 5% 50 ML IV SCH ×3 (06:00→21:11)
--- NOTE | 2020-01-24 06:14 | NUR ---
Pt slept throughout the night. Denies any discomfort at this time. On RA sating at 99%. Safety and comfort provided. No other issues or concerns at this time. Will endorse to day shift.
[2020-01-24 06:27] LABS: BASOPHILS % (AUTO) 0.2 % (0.0-2.0); EOSINOPHILS % (AUTO) 0.1 % (0.0-7.0); HEMATOCRIT 31.6 % (31.2-41.9); HEMOGLOBIN 10.6 g/dL (10.9-14.3); LYMPHOCYTES % (AUTO) 31.8 % (20.5-51.5); MEAN CORPUSCULAR HEMOGLOBIN 31.8 uug (24.7-32.8); MEAN CORPUSCULAR HGB CONC 34 g/dL (32.3-35.6); MEAN CORPUSCULAR VOLUME 94.6 fL (75.5-95.3); MONOCYTES # (AUTO) 0.4 K/uL (2.0-10.0); NEUTROPHILS # (AUTO) 3.8 K/uL (1.8-8.9); NEUTROPHILS % (AUTO) 60.9 % (38.5-71.5); PLATELET COUNT (AUTO) 215 K/uL (179-408); RED BLOOD CELL COUNT(AUTO) 3.34 MIL/uL (3.63-4.92); WHITE BLOOD COUNT (AUTO) 6.2 K/uL (3.8-11.8)
[2020-01-24 06:39] LABS: CREATININE 0.6 mg/dL (0.6-1.3); MAGNESIUM 1.8 mg/dL (1.8-2.4); POTASSIUM 3.5 mmol/L (3.5-5.1); URIC ACID 3.1 mg/dL (2.6-6.0)
[2020-01-24 06:43] LABS: THYROID STIMULATING HORMONE 5.93 mIU/mL (0.358-3.740)
[2020-01-24] MEDS: ACETAMINOPHEN 325 MG TABLET PO PRN ×2 (06:54→16:39)
[2020-01-24] MEDS: ZINC SULFATE 220 MG CAPSULE PO SCH (09:12)
[2020-01-24] MEDS: MULTIVITAMINS,THERAPEUTIC TABLET PO SCH (09:12)
[2020-01-24] MEDS: DIVALPROEX 500 MG TABLET.DR PO SCH ×2 (09:12→16:39)
[2020-01-24] MEDS: levETIRAcetam 500 MG TABLET PO SCH ×2 (09:12→16:39)
[2020-01-24] MEDS: ASPIRIN 81 MG TAB.CHEW PO SCH (09:12)
[2020-01-24] MEDS: LEVOTHYROXINE SODIUM 50 MCG TABLET PO SCH (09:13)
[2020-01-24] MEDS: ASCORBIC ACID 500 MG TABLET PO SCH (09:13)
[2020-01-24] MEDS: CHOLECALCIFEROL 1,000 UNIT TABLET PO SCH (09:13)
[2020-01-24] MEDS: QUETIAPINE FUMARATE 25 MG TABLET PO SCH ×2 (09:13→21:02)
[2020-01-24 11:47] VITALS: BP 100/45
[2020-01-24 16:00] VITALS: BP 114/56
[2020-01-24] MEDS: MIRTAZAPINE 15 MG TABLET PO SCH (21:02)
[2020-01-24] MEDS: DONEPEZIL 5 MG TABLET PO SCH (21:02)
[2020-01-24 21:05] VITALS: BP 90/51
[2020-01-24] MEDS: ENOXAPARIN SODIUM 40 MG/0.4 ML DISP.SYRIN SQ SCH (21:22)
[2020-01-24] MEDS: VANCOMYCIN IV 1,000 MG in IV DEXTROSE 5% 250 ML IV SCH (22:53)
[2020-01-24] MEDS: HYDROCODONE/APAP 5-325MG TABLET PO PRN (23:06)
[2020-01-25] MEDS: ACETAMINOPHEN 325 MG TABLET PO PRN ×2 (00:57→13:06)
[2020-01-25 01:03] VITALS: BP 98/52
[2020-01-25] MEDS: CEFEPIME HCL 1 G in IV DEXTROSE 5% 50 ML IV SCH ×3 (05:51→22:25)
[2020-01-25 05:52] VITALS: BP 106/54
[2020-01-25] MEDS: MULTIVITAMINS,THERAPEUTIC TABLET PO SCH (10:17)
[2020-01-25] MEDS: levETIRAcetam 500 MG TABLET PO SCH ×2 (10:17→16:50)
[2020-01-25] MEDS: LEVOTHYROXINE SODIUM 50 MCG TABLET PO SCH (10:17)
[2020-01-25] MEDS: ASCORBIC ACID 500 MG TABLET PO SCH (10:17)
[2020-01-25] MEDS: ASPIRIN 81 MG TAB.CHEW PO SCH (10:18)
[2020-01-25] MEDS: DIVALPROEX 500 MG TABLET.DR PO SCH ×2 (10:18→16:50)
[2020-01-25] MEDS: ZINC SULFATE 220 MG CAPSULE PO SCH (10:18)
[2020-01-25] MEDS: CHOLECALCIFEROL 1,000 UNIT TABLET PO SCH (10:18)
[2020-01-25] MEDS: QUETIAPINE FUMARATE 25 MG TABLET PO SCH ×2 (10:18→21:07)
[2020-01-25 11:42] LABS: CARBON DIOXIDE 28 mmol/L (21-32); CREATININE 0.5 mg/dL (0.6-1.3); GLUCOSE 113 mg/dL (74-106); MAGNESIUM 1.5 mg/dL (1.8-2.4); PHOSPHOROUS 2.1 mg/dL (2.5-4.9); UREA NITROGEN, BLOOD 8 mg/dL (7-18); URIC ACID 3.3 mg/dL (2.6-6.0)
[2020-01-25 11:52] LABS: BASOPHILS % (AUTO) 0.3 % (0.0-2.0); EOSINOPHILS % (AUTO) 0.3 % (0.0-7.0); HEMATOCRIT 31.9 % (31.2-41.9); HEMOGLOBIN 10.8 g/dL (10.9-14.3); LYMPHOCYTES # (AUTO) 0.9 K/uL (20.0-40.0); LYMPHOCYTES % (AUTO) 27.5 % (20.5-51.5); MEAN CORPUSCULAR HEMOGLOBIN 31.4 uug (24.7-32.8); MEAN CORPUSCULAR HGB CONC 34 g/dL (32.3-35.6); MONOCYTES # (AUTO) 0.3 K/uL (2.0-10.0); MONOCYTES % (AUTO) 9.9 % (0.0-11.0); NEUTROPHILS # (AUTO) 2.1 K/uL (1.8-8.9); PLATELET COUNT (AUTO) 196 K/uL (179-408); RED BLOOD CELL COUNT(AUTO) 3.43 MIL/uL (3.63-4.92); WHITE BLOOD COUNT (AUTO) 3.4 K/uL (3.8-11.8)
[2020-01-25 12:00] VITALS: BP 107/55
[2020-01-25 12:13] LABS: CHLORIDE 94 mmol/L (98-107); POTASSIUM 3.2 mmol/L (3.5-5.1)
[2020-01-25] MEDS ORDERED: NEUTRA PHOS PACKET PO ONE (13:15)
[2020-01-25] MEDS ORDERED: MAGNESIUM OXIDE 400 MG TABLET PO ONE (13:15)
[2020-01-25] MEDS ORDERED: POTASSIUM CHLORIDE 20 MEQ TAB.PRT.SR PO ONE (13:15)
--- NOTE | 2020-01-25 14:41 | NUR ---
POTASSIUM LEVEL IS 3.4 MAG IS 1.5 AND PHOS I 2.1 SEE DNP HERE AND NOTIFIED WITH REPLACEMENT ORDERS AND NOTED. ALSO TEMP AT THIS TIME IS 100,7 TYLENOL GIVEN AND COOLING MEASURES STARTED MADE COMFORTABLE.
--- NOTE | 2020-01-25 15:32 | NUR ---
PATIENT SEEN AND EXAMINED BY DR BUCK WITH NEW ORDERS AND NOTED.
[2020-01-25 16:00] VITALS: BP 103/63
--- NOTE | 2020-01-25 18:00 | NUR ---
AFEBRILE AT THIS TIME TEMP IS 98.4
[2020-01-25 20:41] VITALS: BP 111/63
[2020-01-25] MEDS: MIRTAZAPINE 15 MG TABLET PO SCH (21:07)
[2020-01-25] MEDS: DONEPEZIL 5 MG TABLET PO SCH (21:07)
[2020-01-25] MEDS: ENOXAPARIN SODIUM 40 MG/0.4 ML DISP.SYRIN SQ SCH (22:31)
[2020-01-25] MEDS: VANCOMYCIN IV 1,000 MG in IV DEXTROSE 5% 250 ML IV SCH ×2 (23:00→23:36)
[2020-01-26] MEDS: ACETAMINOPHEN 325 MG TABLET PO PRN ×2 (00:41→21:16)
--- NOTE | 2020-01-26 00:48 | NUR ---
patient administered tylenol for fever will recheck and follow up
--- NOTE | 2020-01-26 00:57 | NUR ---
patient found with IV line leaking while administering vanco. vanco discontinued and IV line discontinued.
--- NOTE | 2020-01-26 00:58 | NUR ---
dr. todd nelson ordered midline for patient. multiple attempts made to try IV line. supervisor boilermaking shop aware and midline will be ordered for the morning. aware that patient is unable to receive vancomycin tonight.
[2020-01-26 01:22] VITALS: BP 110/63
[2020-01-26] MEDS: HYDROCODONE/APAP 5-325MG TABLET PO PRN (01:58)
--- NOTE | 2020-01-26 02:05 | NUR ---
temperature currently at 99.3. ice packs and norco administered for pain. will continue to monitor and assess.
[2020-01-26 04:37] VITALS: BP 91/48
[2020-01-26] MEDS: CEFEPIME HCL 1 G in IV DEXTROSE 5% 50 ML IV SCH ×4 (05:27→21:17)
--- NOTE | 2020-01-26 05:27 | NUR ---
unable to administer abx due to no IV line. dr. nelson aware. midline order placed during my shift. ETA will be sometimes in the morning.
[2020-01-26] MEDS: ZINC SULFATE 220 MG CAPSULE PO SCH (09:17)
[2020-01-26] MEDS: ASCORBIC ACID 500 MG TABLET PO SCH (09:17)
[2020-01-26] MEDS: DIVALPROEX 500 MG TABLET.DR PO SCH ×2 (09:17→16:32)
[2020-01-26] MEDS: MULTIVITAMINS,THERAPEUTIC TABLET PO SCH (09:17)
[2020-01-26] MEDS: ASPIRIN 81 MG TAB.CHEW PO SCH (09:17)
[2020-01-26] MEDS: QUETIAPINE FUMARATE 25 MG TABLET PO SCH ×2 (09:17→21:16)
[2020-01-26] MEDS: LEVOTHYROXINE SODIUM 50 MCG TABLET PO SCH (09:17)
[2020-01-26] MEDS: levETIRAcetam 500 MG TABLET PO SCH ×2 (09:18→16:32)
[2020-01-26] MEDS: CHOLECALCIFEROL 1,000 UNIT TABLET PO SCH (09:18)
[2020-01-26 10:27] LABS: CARBON DIOXIDE 25 mmol/L (21-32); CHLORIDE 95 mmol/L (98-107); CREATININE 0.5 mg/dL (0.6-1.3); GLUCOSE 88 mg/dL (74-106); POTASSIUM 3.7 mmol/L (3.5-5.1); UREA NITROGEN, BLOOD 14 mg/dL (7-18)
[2020-01-26 12:00] VITALS: BP 101/59
[2020-01-26 16:00] VITALS: BP 128/69
--- NOTE | 2020-01-26 18:04 | NUR ---
MAXIPIME IV ATB GIVEN AT THIS TIME WAS SUPPOSED TO BE GIVEN AT 1400 BUT PATIENT HAS NO IV ACCESS MID LINE JUST INSERTED TO HER RIGHT UPPER ARM PATENT AND INTACT.
[2020-01-26] MEDS: IV D5/ 0.9% NACL 1,000 ML IV PRN (19:18)
[2020-01-26 21:00] VITALS: BP 110/54
[2020-01-26] MEDS: MIRTAZAPINE 15 MG TABLET PO SCH (21:16)
[2020-01-26] MEDS: DONEPEZIL 5 MG TABLET PO SCH (21:16)
[2020-01-26] MEDS: ENOXAPARIN SODIUM 40 MG/0.4 ML DISP.SYRIN SQ SCH (21:17)
[2020-01-26] MEDS: VANCOMYCIN IV 1,000 MG in IV DEXTROSE 5% 250 ML IV SCH (23:28)
[2020-01-27 00:35] VITALS: BP 92/45
[2020-01-27 04:50] VITALS: BP 119/66
[2020-01-27] MEDS: CEFEPIME HCL 1 G in IV DEXTROSE 5% 50 ML IV SCH ×3 (05:38→21:50)
[2020-01-27 07:52] LABS: BASOPHILS % (AUTO) 0.5 % (0.0-2.0); EOSINOPHILS % (AUTO) 0.7 % (0.0-7.0); HEMATOCRIT 33.2 % (31.2-41.9); HEMOGLOBIN 11.1 g/dL (10.9-14.3); LYMPHOCYTES % (AUTO) 49.7 % (20.5-51.5); MEAN CORPUSCULAR HEMOGLOBIN 31.2 uug (24.7-32.8); MEAN CORPUSCULAR HGB CONC 34 g/dL (32.3-35.6); MEAN CORPUSCULAR VOLUME 93.2 fL (75.5-95.3); MONOCYTES # (AUTO) 0.5 K/uL (2.0-10.0); NEUTROPHILS # (AUTO) 1.5 K/uL (1.8-8.9); NEUTROPHILS % (AUTO) 37.1 % (38.5-71.5); PLATELET COUNT (AUTO) 244 K/uL (179-408); RED BLOOD CELL COUNT(AUTO) 3.57 MIL/uL (3.63-4.92); WHITE BLOOD COUNT (AUTO) 4.1 K/uL (3.8-11.8)
--- NOTE | 2020-01-27 07:54 | NUR ---
RECEIVED IN BED AWAKE ALERT AND AWARE WITH LIMITED MAORI SPEAKS MOSTLY KAZAKH ABLE TO MAKE SIMPLE NEEDS KNOWN REMAIN ON COVID ISOLATION AND PRECAUTION ORDERED PATIENT SEEN BY DR ALFONSO WITH NEW ORDERS AND NOTED.
[2020-01-27 07:56] LABS: CREATININE 0.6 mg/dL (0.6-1.3); POTASSIUM 3.7 mmol/L (3.5-5.1)
[2020-01-27 08:01] LABS: THYROID STIMULATING HORMONE 3.227 mIU/mL (0.358-3.740)
[2020-01-27 08:14] LABS: PHOSPHOROUS 3.4 mg/dL (2.5-4.9); URIC ACID 2.8 mg/dL (2.6-6.0)
[2020-01-27] MEDS: CHOLECALCIFEROL 1,000 UNIT TABLET PO SCH (08:57)
[2020-01-27] MEDS: ASPIRIN 81 MG TAB.CHEW PO SCH (08:57)
[2020-01-27] MEDS: ASCORBIC ACID 500 MG TABLET PO SCH (08:57)
[2020-01-27] MEDS: QUETIAPINE FUMARATE 25 MG TABLET PO SCH ×2 (08:58→20:24)
[2020-01-27] MEDS: DIVALPROEX 500 MG TABLET.DR PO SCH ×2 (08:58→16:31)
[2020-01-27] MEDS: levETIRAcetam 500 MG TABLET PO SCH ×2 (08:58→17:54)
[2020-01-27] MEDS: LEVOTHYROXINE SODIUM 50 MCG TABLET PO SCH (08:58)
[2020-01-27] MEDS: ZINC SULFATE 220 MG CAPSULE PO SCH (08:58)
[2020-01-27] MEDS: MULTIVITAMINS,THERAPEUTIC TABLET PO SCH (08:58)
[2020-01-27 12:00] VITALS: BP 96/54
[2020-01-27] MEDS: IV D5/ 0.9% NACL 1,000 ML IV PRN (12:00)
[2020-01-27 16:00] VITALS: BP 106/58
--- NOTE | 2020-01-27 18:00 | NUR ---
RESTING IN BED WITH IVF ORDERED WITH IV ATB WITH NO S/S OF ADVERSE OR ALLERGIC REACTIONS REMAIN ON COVID ISOLATION AND PRECAUTION NO SOB ON ROOM AIR AT THIS TIME WILL CONTINUE TO OBSERVE..
[2020-01-27 20:21] VITALS: BP 108/68
[2020-01-27] MEDS: DONEPEZIL 5 MG TABLET PO SCH (20:24)
[2020-01-27] MEDS: MIRTAZAPINE 15 MG TABLET PO SCH (20:24)
[2020-01-27] MEDS: HYDROCODONE/APAP 5-325MG TABLET PO PRN (20:25)
--- NOTE | 2020-01-27 20:25 | NUR ---
PATIENT IS AWAKE ALERT AND VERBALLY RESPONSIVE STATED C/O PAIN BOTH LOWER EXTREMITIES ASSISTED WITH TURNING AND REPOSITIONING AND MEDICATED WITH NORCO ORDERED MADE COMFORTABLE WILL CONTINUE TO OBSERVE.
[2020-01-27] MEDS: ENOXAPARIN SODIUM 40 MG/0.4 ML DISP.SYRIN SQ SCH (22:46)
[2020-01-27] MEDS: VANCOMYCIN IV 1,000 MG in IV DEXTROSE 5% 250 ML IV SCH (22:51)
[2020-01-28 00:18] VITALS: BP 117/65
--- NOTE | 2020-01-28 02:20 | NUR ---
REMAIN ON ANTIBIOTICS AND IV FLUIDS ORDERED WITH NO ADVERSE OR ALLERGIC REACTIONS AT THIS TIME REMAIN ON ROOM AIR WITH NO SOB NOT IN DISTRESS WILL CONTINUE TO OBSERVE.
[2020-01-28 04:28] VITALS: BP 132/57
[2020-01-28] MEDS: CEFEPIME HCL 1 G in IV DEXTROSE 5% 50 ML IV SCH ×3 (05:01→22:10)
[2020-01-28] MEDS: IV D5/ 0.9% NACL 1,000 ML IV PRN (05:38)
--- NOTE | 2020-01-28 06:00 | NUR ---
PATIENT NOTED TO HAVE SLEPT WELL WITH NO C/O DISCOMFORTS AT THIS TIME REMAIN ON COVID ISOLATION AND PRECAUTION AFEBRILE ON ROOM AIR WITH NO SOB NOT IN DISTRESS AT THIS TIME.
[2020-01-28] MEDS: ASPIRIN 81 MG TAB.CHEW PO SCH (10:11)
[2020-01-28] MEDS: DIVALPROEX 500 MG TABLET.DR PO SCH ×2 (10:12→17:47)
[2020-01-28] MEDS: ASCORBIC ACID 500 MG TABLET PO SCH (10:12)
[2020-01-28] MEDS: MULTIVITAMINS,THERAPEUTIC TABLET PO SCH (10:13)
[2020-01-28] MEDS: QUETIAPINE FUMARATE 25 MG TABLET PO SCH ×2 (10:13→20:58)
[2020-01-28] MEDS: LEVOTHYROXINE SODIUM 50 MCG TABLET PO SCH (10:13)
[2020-01-28] MEDS: ZINC SULFATE 220 MG CAPSULE PO SCH (10:13)
[2020-01-28] MEDS: CHOLECALCIFEROL 1,000 UNIT TABLET PO SCH (10:16)
[2020-01-28] MEDS: levETIRAcetam 500 MG TABLET PO SCH ×2 (10:16→17:47)
[2020-01-28 11:57] VITALS: BP 121/63
[2020-01-28 15:45] LABS: BASOPHILS % (AUTO) 1.3 % (0.0-2.0); EOSINOPHILS % (AUTO) 0.4 % (0.0-7.0); HEMATOCRIT 28.1 % (31.2-41.9); HEMOGLOBIN 9.3 g/dL (10.9-14.3); LYMPHOCYTES # (AUTO) 0.9 K/uL (20.0-40.0); LYMPHOCYTES % (AUTO) 33.3 % (20.5-51.5); MEAN CORPUSCULAR HEMOGLOBIN 30.5 uug (24.7-32.8); MEAN CORPUSCULAR HGB CONC 33 g/dL (32.3-35.6); MEAN CORPUSCULAR VOLUME 92.7 fL (75.5-95.3); MONOCYTES # (AUTO) 0.5 K/uL (2.0-10.0); MONOCYTES % (AUTO) 16.9 % (0.0-11.0); NEUTROPHILS # (AUTO) 1.3 K/uL (1.8-8.9); NEUTROPHILS % (AUTO) 48.1 % (38.5-71.5); PLATELET COUNT (AUTO) 264 K/uL (179-408); RED BLOOD CELL COUNT(AUTO) 3.03 MIL/uL (3.63-4.92); WHITE BLOOD COUNT (AUTO) 2.7 K/uL (3.8-11.8)
[2020-01-28 15:58] LABS: ALANINE AMINOTRANSFERASE 14 U/L (14-59); ALKALINE PHOSPHATASE 82 U/L (50-136); ASPARTATE AMINOTRANSFERASE 25 U/L (15-37); BILIRUBIN,TOTAL 0.2 mg/dL (0.2-1.0); CARBON DIOXIDE 26 mmol/L (21-32); CHLORIDE 101 mmol/L (98-107); CREATININE 0.5 mg/dL (0.6-1.3); GLUCOSE 120 mg/dL (74-106); MAGNESIUM 1.8 mg/dL (1.8-2.4); PHOSPHOROUS 2.9 mg/dL (2.5-4.9); POTASSIUM 3.4 mmol/L (3.5-5.1); TOTAL PROTEIN, SERUM 6.2 g/dL (6.4-8.2); UREA NITROGEN, BLOOD 9 mg/dL (7-18)
[2020-01-28 16:57] VITALS: BP 107/58
--- NOTE | 2020-01-28 18:30 | NUR ---
Patient remains alert, oriented x 3, not in any form of distress, on room air. No complain of any pain or discomfort. Assisted with her needs promptly. Call light and frequently used items placed within patient's reach.
[2020-01-28 18:32] LABS: BAND % (MANUAL) 2 % (0-10); EOSINOPHILS % (MANUAL) 1 % (0-8); LYMPHOCYTES % (MANUAL) 42 % (20-40); MONOCYTES % (MANUAL) 7 % (2-10); MYELOCYTES % 1 % (0-0); NEUTROPHILS % (MANUAL) 46 % (42-75); PROMYELOCYTES % 1 %
[2020-01-28 20:00] VITALS: BP 116/54
[2020-01-28] MEDS: DONEPEZIL 5 MG TABLET PO SCH (20:58)
[2020-01-28] MEDS: MIRTAZAPINE 15 MG TABLET PO SCH (20:58)
[2020-01-28] MEDS: ENOXAPARIN SODIUM 40 MG/0.4 ML DISP.SYRIN SQ SCH (22:27)
[2020-01-28] MEDS: VANCOMYCIN IV 1,000 MG in IV DEXTROSE 5% 250 ML IV SCH (23:12)
[2020-01-29 01:16] VITALS: BP 106/50
[2020-01-29 04:00] VITALS: BP 94/43
[2020-01-29] MEDS: CEFEPIME HCL 1 G in IV DEXTROSE 5% 50 ML IV SCH ×2 (05:08→14:23)
[2020-01-29] MEDS: HYDROCODONE/APAP 5-325MG TABLET PO PRN ×4 (05:53→22:12)
[2020-01-29] MEDS: IV D5/ 0.9% NACL 1,000 ML IV PRN (05:58)
--- NOTE | 2020-01-29 07:30 | NUR ---
Received patient resting in bed, alert and orientated x3. No signs of distress noted. Safety precautions in place. Will continue to monitor.
[2020-01-29 08:29] LABS: CARBON DIOXIDE 29 mmol/L (21-32); CHLORIDE 97 mmol/L (98-107); CREATININE 0.5 mg/dL (0.6-1.3); GLUCOSE 95 mg/dL (74-106); POTASSIUM 3.1 mmol/L (3.5-5.1); UREA NITROGEN, BLOOD 8 mg/dL (7-18)
[2020-01-29] MEDS: CHOLECALCIFEROL 1,000 UNIT TABLET PO SCH (09:18)
[2020-01-29] MEDS: DIVALPROEX 500 MG TABLET.DR PO SCH ×2 (09:18→17:19)
[2020-01-29] MEDS: ASPIRIN 81 MG TAB.CHEW PO SCH (09:18)
[2020-01-29] MEDS: ASCORBIC ACID 500 MG TABLET PO SCH (09:19)
[2020-01-29] MEDS: levETIRAcetam 500 MG TABLET PO SCH ×2 (09:19→17:19)
[2020-01-29] MEDS: ZINC SULFATE 220 MG CAPSULE PO SCH (09:19)
[2020-01-29] MEDS: MULTIVITAMINS,THERAPEUTIC TABLET PO SCH (09:19)
[2020-01-29] MEDS: LEVOTHYROXINE SODIUM 50 MCG TABLET PO SCH (09:19)
[2020-01-29] MEDS: QUETIAPINE FUMARATE 25 MG TABLET PO SCH ×2 (09:19→21:14)
[2020-01-29] MEDS ORDERED: POTASSIUM CHLORIDE 20 MEQ TAB.PRT.SR PO ONE (10:45)
[2020-01-29 11:00] VITALS: BP 104/54
[2020-01-29] MEDS ORDERED: VANCOMYCIN IV 1,000 MG in IV DEXTROSE 5% 250 ML IV SCH (15:00)
[2020-01-29 16:00] VITALS: BP 113/56
[2020-01-29] MEDS ORDERED: HYDROCODONE BIT/HOMATROPINE 5 ML UDC PO PRN (16:00)
--- NOTE | 2020-01-29 18:49 | NUR ---
Patient resting in bed. Patient complained of pain, and pain medication administered. Patient will be discharged to [facility] nursing [facility] tomorrow at 11 am per keycase assembler. Safety precautions in place. Will endorse to oncoming nurse.
[2020-01-29] MEDS: MIRTAZAPINE 15 MG TABLET PO SCH (21:14)
[2020-01-29] MEDS: DONEPEZIL 5 MG TABLET PO SCH (21:14)
[2020-01-29] MEDS: ENOXAPARIN SODIUM 40 MG/0.4 ML DISP.SYRIN SQ SCH (21:17)
[2020-01-29 21:56] VITALS: BP 109/62
[2020-01-29] MEDS: ACETAMINOPHEN 325 MG TABLET PO PRN (22:12)
[2020-01-30 02:26] VITALS: BP 100/56
--- NOTE | 2020-01-30 07:09 | NUR ---
rechecked patients BP after reading SUPERVISOR RECLAMATION's BP. patient BP currently 120/73 and stable.
[2020-01-30 07:41] VITALS: BP 93/51
[2020-01-30 08:35] LABS: BASOPHILS % (AUTO) 0.7 % (0.0-2.0); EOSINOPHILS # (AUTO) 0.1 K/uL (0.0-0.7); EOSINOPHILS % (AUTO) 1.8 % (0.0-7.0); HEMATOCRIT 27.4 % (31.2-41.9); HEMOGLOBIN 9.4 g/dL (10.9-14.3); LYMPHOCYTES # (AUTO) 1.4 K/uL (20.0-40.0); LYMPHOCYTES % (AUTO) 40.1 % (20.5-51.5); MEAN CORPUSCULAR HEMOGLOBIN 31.6 uug (24.7-32.8); MEAN CORPUSCULAR HGB CONC 34 g/dL (32.3-35.6); MEAN CORPUSCULAR VOLUME 92.9 fL (75.5-95.3); MONOCYTES # (AUTO) 0.6 K/uL (2.0-10.0); MONOCYTES % (AUTO) 16.6 % (0.0-11.0); NEUTROPHILS # (AUTO) 1.4 K/uL (1.8-8.9); NEUTROPHILS % (AUTO) 40.8 % (38.5-71.5); PLATELET COUNT (AUTO) 373 K/uL (179-408); RED BLOOD CELL COUNT(AUTO) 2.96 MIL/uL (3.63-4.92); WHITE BLOOD COUNT (AUTO) 3.4 K/uL (3.8-11.8)
[2020-01-30 08:43] LABS: NEUTROPHILS % (MANUAL) 0 % (42-75)
[2020-01-30] MEDS: DIVALPROEX 500 MG TABLET.DR PO SCH (09:21)
[2020-01-30] MEDS: LEVOTHYROXINE SODIUM 50 MCG TABLET PO SCH (09:21)
[2020-01-30] MEDS: ZINC SULFATE 220 MG CAPSULE PO SCH (09:21)
[2020-01-30] MEDS: CHOLECALCIFEROL 1,000 UNIT TABLET PO SCH (09:22)
[2020-01-30] MEDS: ASCORBIC ACID 500 MG TABLET PO SCH (09:22)
[2020-01-30] MEDS: QUETIAPINE FUMARATE 25 MG TABLET PO SCH (09:22)
[2020-01-30] MEDS: MULTIVITAMINS,THERAPEUTIC TABLET PO SCH (09:22)
[2020-01-30] MEDS: ASPIRIN 81 MG TAB.CHEW PO SCH (09:23)
[2020-01-30] MEDS: levETIRAcetam 500 MG TABLET PO SCH (09:23)
[2020-01-30 09:34] LABS: ALANINE AMINOTRANSFERASE 12 U/L (14-59); ALKALINE PHOSPHATASE 95 U/L (50-136); ASPARTATE AMINOTRANSFERASE 22 U/L (15-37); BILIRUBIN,TOTAL 0.1 mg/dL (0.2-1.0); CARBON DIOXIDE 29 mmol/L (21-32); CHLORIDE 104 mmol/L (98-107); CREATININE 0.5 mg/dL (0.6-1.3); GLUCOSE 109 mg/dL (74-106); MAGNESIUM 1.9 mg/dL (1.8-2.4); PHOSPHOROUS 2.4 mg/dL (2.5-4.9); TOTAL PROTEIN, SERUM 6.2 g/dL (6.4-8.2); UREA NITROGEN, BLOOD 11 mg/dL (7-18)
[2020-01-30 11:18] VITALS: BP 104/58
--- NOTE | 2020-01-30 12:09 | NUR ---
Received patient AOx2-3, patient on Midline at [facility], with D51/2 NS at 100ml /hr patient on room air with PO2 92 no SOB, No Distress, seen and examine by DR. GOODSON, with orders to DC to [facility] for continuation of care patient denies pain PPE and covid 19 isolation precaution observed at all time, patient aware of the discharge, family aware, called and spoke with shayy nurse from [facility] and gave report, patient was picked up by ambulance and was transferred via gurney
== END 2020-01-30 12:17 | DRG 177 ==
LOC: ER 02:17 → TELE3 16:07
PROVIDERS: ADMIT Internal Medicine; ATTEND Internal Medicine
DX: U07.1 COVID-19 (principal); J96.01 Acute respiratory failure with hypoxia; J15.9 Unspecified bacterial pneumonia; E22.2 Syndrome of inappropriate secretion of antidiuretic hormone; G93.40 Encephalopathy, unspecified; N39.0 Urinary tract infection, site not specified; G30.9 Alzheimer's disease, unspecified; F02.80 Dementia in other diseases classified elsewhere, unspecified severity, without behavioral disturbance, psychotic disturbance, mood disturbance, and anxiety; E87.6 Hypokalemia; D64.9 Anemia, unspecified; E03.9 Hypothyroidism, unspecified; E83.42 Hypomagnesemia; F39 Unspecified mood [affective] disorder; I10 Essential (primary) hypertension; I70.0 Atherosclerosis of aorta; N32.81 Overactive bladder; Z79.82 Long term (current) use of aspirin; Z79.899 Other long term (current) drug therapy; K21.9 Gastro-esophageal reflux disease without esophagitis; M19.90 Unspecified osteoarthritis, unspecified site
CPT/HCPCS: 36415; 70030-TC; 71045; 82533; 83605; 83615; 83735; 84100; 84443; 84550; 85025; 85730; 86140; 87040; 87086; 87400; 93005; A4663; C1758; G0378; J0692; J1650; J3370; J7030; J7042; J7060; U0003